=== PATIENT | male | born 1940 | race Caucasian/White ===

== ENCOUNTER 2020-05-24 11:56 | Inpatient (IN) ==
[2020-05-24] MEDS ORDERED: IOPAMIDOL 100 ML BOTTLE IV ONE (11:57)
[2020-05-24] MEDS ORDERED: 0.9 % SODIUM CHLORIDE 2,000 ML IV ONE (12:06)
[2020-05-24] MEDS ORDERED: cefTRIAXone 1 GM VIAL IV ONE (12:09)
--- NOTE | 2020-05-24 12:12 | Emergency Department Note ---
Altered Mental Status HPI General Chief Complaint: Altered Mental Status Stated Complaint: Altered LOC Time Seen by Provider: 05/24/20 12:06 Source: EMS Mode of arrival: ambulatory Limitations: no limitations History of Present Illness HPI Narrative: 80-year-old patient presenting to the emergency department chief complaint of altered mentation. Historical clues assessed for include recent febrile illness, history of organ failure, medication list evaluation, alcohol drug abuse, recent depression. Patient was in usual state of health went out to do some weed whacking this morning returned and was sleeping in his chair when noted that he was having acute altered mentation. Patient attempted to take his pants down and was headed towards the front door to urinate. Patient is confused at time of evaluation and history is limited. There are no exacerbating or ameliorating factors identified at this time. Time course is sudden acute over just a couple of hours patient became unresponsive to question ing. Related Data Home Medications Medication Instructions Recorded Confirmed aspirin 81 mg tablet,delayed 81 mg PO QDAY 03/15/16 05/24/20 release Adult Multi Gummies 1 tab PO DAILY 03/06/17 05/24/20 Previous Rx's Medication Instructions Recorded atorvastatin 10 mg tablet 10 mg PO QDAY #90 tab 10/20/19 tamsulosin 0.4 mg capsule 0.4 mg PO QDAY #90 cap 02/17/20 Allergies Allergy/AdvReac Type Severity Reaction Status Date / Time No Known Drug Allergies Allergy Verified 05/24/20 17:29 Review of Systems All systems ED: reviewed and negative except as stated. 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 Cryotherapy. Ataxia (Chronic) resolved Closed rib fracture (Resolved) Colon adenoma (Inactive) 2011 Costochondritis (Resolved 02/25/14) Right Costal Margin Cough due to bronchospasm (Resolved) Diverticulosis (Inactive 02/25/14) Dyspnea (Resolved) Fall (Resolved) Hearing loss (Chronic) Long-term. Hearing aid left ear. Right ear deaf. Hernia, inguinal (Chronic) Asymptomatic RIH Hydronephrosis (Chronic 02/19/14) Hyperlipidemia (Chronic) Hypertension, essential, benign (Chronic) Not on antihypertensive medications. Moderately well controlled. Patient at high risk for falls, so I hesitate to add blood pressure medications. His blood pressure is acceptable today. Lumbar back pain (Chronic 08/04/13) Recent lumbar decompression Malignant neoplasm of prostate (Chronic) 2000 Minor head injury (Resolved) Myofascial pain (Resolved) Left trapezius and posterior paraspinal muscles Night sweats (Chronic) Mild, afebrile. Possibly secondary to hormone imbalance such as testosterone deficiency. 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 Repeat steroid injection today. Tolerated well. Tendinopathy of right rotator cuff (Chronic) Steroid injection January 2019. Repeat today. 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 2014. History of colonoscopy (Resolved 01/03/12) Tubular adenoma - due 01/03/2017 03/10/17-diverticuli. No more screening colonoscopies. History of lumbosacral spine surgery (Inactive) 07/2013 Lumbar decompression L3-L4 History of mastoidectomy (Inactive) Remote - right History of radical prostatectomy (Inactive) 2000 and radiation Family History Father Malignant neoplasm of colon Malignant neoplasm of prostate Mother , at 86y Cardiac disease Social History Smoking Status: Never smoker Alcohol Intake Frequency: former alcohol drinker Substance Use: does not use Exam Narrative Narrative: General: Confused, restless, disoriented Orientation: Completely disoriented HENCA Head: normal to inspection and normocephalic Ears: Not assessable Nose: external nose normal, nares normal and no nasal discharge Face : normal facial exam, and face symmetric Mouth: oral mucosae dry, lip normal, tongue normal, oropharynx normal and dry mucous membranes Eyes Eyelids: eyelids normal Conjunctivae: conjunctivae normal Sclera: sclerae normal Pupils: PERRL EOM: EOM intact bilaterally Neck Neck: full ROM, supple, trachea midline and no lymphadenopathy Thyroid: thyroid normal Resp Effort & Inspection: Patient is tachypneic with some increased respiratory effort auscultation: Diffuse coarse breath sounds bilaterally; no rales, rhonchi or wheezes Cardio Jugular venous pressure: no JVD Rate: Tachycardia Rhythm: regular rhythm Heart Sounds: S1 normal and S2 normal Pulses: brachial pulses present, dorsalis pedis present, femoral pulses present, popliteal pulses present, posterior tibial pulses present and radial pulses present GI Palpation: soft and no hepatosplenomegaly; no tender Auscultation: normal bowel sounds Skin General: no rashes or lesions noted, elasticity normal and turgor normal Neuro General: gait untestable, moves all extremities Cognition: Altered mental status Speech: Nonverbal Gait: Untestable Motor: muscle tone normal throughout and strength 5/5 throughout; not capable of coordinated testing however patient moves all extremities well and is able to thrash about to an extent Extrem General: normal to inspection, full ROM, capillary refill normal, no joint enlargement and no clubbing, cyanosis nor edema Psych altered mentation General Limitations: no limitations Course Course Course Narrative: Patient with complete alteration in mental status at time of presentation, unresponsive to questioning, initial laboratory results included CT head as well as chest x-ray demonstrating no significant findings. Patient with rapid rise in his temperature to a T-max of 105.3. Patient is tachycardic. Patient i was not tachypneic, he was hypoxic on initial presentation. Aggressive fluid resuscitation was initiated as well as aggressive cooling including use of ice packs, patient was given IV Tylenol as well. Patient had defervesced with these interventions. Approximate 1 hour into his emergency department stay patient was interactive and able to answer questions. 1421 patient was noted to be hypotensive started on levophed Vital Signs Vital signs: Vital Signs Temperature 103.5 F H 05/24/20 11:57 Pulse Rate 22 L 05/24/20 11:57 Respiratory Rate 30 H 05/24/20 11:57 Blood Pressure 150/70 05/24/20 11:57 Pulse Oximetry (%) 96 05/24/20 11:57 Temperature 99.3 F H 05/25/20 07:01 Pulse Rate 62 05/25/20 07:01 Respiratory Rate 23 H 05/25/20 07:01 Blood Pressure 105/56 05/25/20 07:01 Pulse Oximetry (%) 95 05/25/20 07:01 [facility] MDM Narrative Medical decision making narrative: 80-year-old patient presenting to the emergency department chief complaint of altered mental status. Patient's recent medical history is evaluated for infectious illnesses, history of organ failure, medication list, drug/alcohol history, and depression patient's mental status made them unable to provide significant clues to current symptoms differential diagnosis included but not limited to stroke, intracranial hemorrhage, electrolyte derangement, DKA/HHS, sepsis, toxicology including alcohol and overdose, status epilepticus. Likely with sepsis as the leading differential cause for her altered mental status. Patient did receive Rocephin in the emergency department. Lab Data Result diagrams: 05/25/20 05:00 05/24/20 12:19 Labs: Lab Results 05/24/20 05/24/20 05/24/20 Range/Units 12:19 12:19 12:19 WBC 6.6 (4.50-11.00) K/mcL RBC 4.47 L (4.63-6.08) M/mcL Hgb 13.7 (13.7-17.5) g/dL Hct 41.0 (40.1-51.0) % MCV 91.7 (80.0-100.0) fL MCH 30.6 (26.0-34.0) pg MCHC 33.4 (31.0-36.0) g/dL RDW 14.5 (11.5-14.5) % Plt Count 331 (140-440) K/mcL MPV 9.6 (7.4-10.4) fL Gran % 90.4 H (38.0-78.0) % Lymph % (Auto) 8.2 L (15.5-49.0) % Martin % (Auto) 0.8 L (1.0-12.0) % Eos % (Auto) 0.3 (0.0-7.0) % Baso % (Auto) 0.3 (0.0-2.0) % Gran # 5.99 (1.80-8.00) K/mcL Lymph # (Auto) 0.54 L (1.50-4.80) K/mcL Martin # (Auto) 0.05 L (0.10-0.90) K/mcL Eos # (Auto) 0.02 (0.00-0.70) K/mcL Baso # (Auto) 0.02 (0.00-0.30) K/mcL Total Counted Seg Neutrophils % (38-78) % Band Neutrophils % (0-10) % Lymphocytes % (15-49) % Monocytes % (Manual) (1-12) % Platelet Estimate (NORMAL) RBC Morphology (NORMAL) Anisocytosis (NONE SEEN) POC PT (11.9-14.5) sec POC INR (0.9-1.2) VBG Lactic Acid 2.7 H (0.5-2.0) mmol/L Sodium 137 (133-145) mmol/L Potassium 3.5 (3.3-5.1) mmol/L Chloride 98 (96-108) mmol/L Carbon Dioxide 22 (22-30) mmol/L Anion Gap 17.0 H (8-16) BUN 16 (8-23) mg/dl Creatinine 1.2 (0.7-1.2) mg/dl GFR Calculation 56 Glucose 113 H (70-105) mg/dL Calcium 9.0 (8.6-10.4) mg/dl Total Bilirubin 0.9 (0.0-1.0) mg/dL AST 23 (0-37) U/l ALT 31 (0-40) U/l Alkaline Phosphatase 78 (39-117) U/L Total Creatine Kinase (24-195) IU/L Total Protein 6.9 (5.9-8.4) gm/dL Albumin 3.3 (3.2-5.2) gm/dL Globulin 3.6 (2.2-3.7) gm/dL Albumin/Globulin Ratio 0.9 L (1.0-2.3) Procalcitonin (<0.10) ng/mL Urine Color Urine Appearance Urine pH (5.0-9.0) Ur Specific Te[place]y (1.000-1.035) Urine Protein (NEG) mg/dL Urine Glucose (UA) (NEG) mg/dL Urine Ketones (NEG) mg/dL Urine Occult Blood (<0.03) mg/dL Urine Nitrate (NEG) Urine Bilirubin (NEG) mg/dL Urine Urobilinogen (NEG) mg/dL Ur Leukocyte Esterase (NEG) /uL Urine RBC (0-1) /hpf Urine WBC (0-4) /hpf Ur Squamous Epith Cells (0-4) /hpf Ur Transition Epith Cell (0-2) /hpf Urine Bacteria (0) /hpf Urine Mucus (0) /hpf Ur Culture Indicated? COVID-19 PCR 05/24/20 05/24/20 05/24/20 Range/Units 12:19 12:19 12:19 WBC (4.50-11.00) K/mcL RBC (4.63-6.08) M/mcL Hgb (13.7-17.5) g/dL Hct (40.1-51.0) % MCV (80.0-100.0) fL MCH (26.0-34.0) pg MCHC (31.0-36.0) g/dL RDW (11.5-14.5) % Plt Count (140-440) K/mcL MPV (7.4-10.4) fL Gran % (38.0-78.0) % Lymph % (Auto) (15.5-49.0) % Martin % (Auto) (1.0-12.0) % Eos % (Auto) (0.0-7.0) % Baso % (Auto) (0.0-2.0) % Gran # (1.80-8.00) K/mcL Lymph # (Auto) (1.50-4.80) K/mcL Martin # (Auto) (0.10-0.90) K/mcL Eos # (Auto) (0.00-0.70) K/mcL Baso # (Auto) (0.00-0.30) K/mcL Total Counted 100 Seg Neutrophils % 57 (38-78) % Band Neutrophils % 34 H (0-10) % Lymphocytes % 8 L (15-49) % Monocytes % (Manual) 1 (1-12) % Platelet Estimate Normal (NORMAL) RBC Morphology Abnorm A (NORMAL) Anisocytosis 1+ A (NONE SEEN) POC PT (11.9-14.5) sec POC INR (0.9-1.2) VBG Lactic Acid (0.5-2.0) mmol/L Sodium (133-145) mmol/L Potassium (3.3-5.1) mmol/L Chloride (96-108) mmol/L Carbon Dioxide (22-30) mmol/L Anion Gap (8-16) BUN (8-23) mg/dl Creatinine (0.7-1.2) mg/dl GFR Calculation Glucose (70-105) mg/dL Calcium (8.6-10.4) mg/dl Total Bilirubin (0.0-1.0) mg/dL AST (0-37) U/l ALT (0-40) U/l Alkaline Phosphatase (39-117) U/L Total Creatine Kinase 36 (24-195) IU/L Total Protein (5.9-8.4) gm/dL Albumin (3.2-5.2) gm/dL Globulin (2.2-3.7) gm/dL Albumin/Globulin Ratio (1.0-2.3) Procalcitonin 0.36 (<0.10) ng/mL Urine Color Urine Appearance Urine pH (5.0-9.0) Ur Specific [place]y (1.000-1.035) Urine Protein (NEG) mg/dL Urine Glucose (UA) (NEG) mg/dL Urine Ketones (NEG) mg/dL Urine Occult Blood (<0.03) mg/dL Urine Nitrate (NEG) Urine Bilirubin (NEG) mg/dL Urine Urobilinogen (NEG) mg/dL Ur Leukocyte Esterase (NEG) /uL Urine RBC (0-1) /hpf Urine WBC (0-4) /hpf Ur Squamous Epith Cells (0-4) /hpf Ur Transition Epith Cell (0-2) /hpf Urine Bacteria (0) /hpf Urine Mucus (0) /hpf Ur Culture Indicated? COVID-19 PCR 05/24/20 05/24/20 05/24/20 Range/Units 12:23 12:24 14:14 WBC (4.50-11.00) K/mcL RBC (4.63-6.08) M/mcL Hgb (13.7-17.5) g/dL Hct (40.1-51.0) % MCV (80.0-100.0) fL MCH (26.0-34.0) pg MCHC (31.0-36.0) g/dL RDW (11.5-14.5) % Plt Count (140-440) K/mcL MPV (7.4-10.4) fL Gran % (38.0-78.0) % Lymph % (Auto) (15.5-49.0) % Martin % (Auto) (1.0-12.0) % Eos % (Auto) (0.0-7.0) % Baso % (Auto) (0.0-2.0) % Gran # (1.80-8.00) K/mcL Lymph # (Auto) (1.50-4.80) K/mcL Martin # (Auto) (0.10-0.90) K/mcL Eos # (Auto) (0.00-0.70) K/mcL Baso # (Auto) (0.00-0.30) K/mcL Total Counted Seg Neutrophils % (38-78) % Band Neutrophils % (0-10) % Lymphocytes % (15-49) % Monocytes % (Manual) (1-12) % Platelet Estimate (NORMAL) RBC Morphology (NORMAL) Anisocytosis (NONE SEEN) POC PT 15.6 H (11.9-14.5) sec POC INR 1.3 H (0.9-1.2) VBG Lactic Acid 1.1 (0.5-2.0) mmol/L Sodium (133-145) mmol/L Potassium (3.3-5.1) mmol/L Chloride (96-108) mmol/L Carbon Dioxide (22-30) mmol/L Anion Gap (8-16) BUN (8-23) mg/dl Creatinine (0.7-1.2) mg/dl GFR Calculation Glucose (70-105) mg/dL Calcium (8.6-10.4) mg/dl Total Bilirubin (0.0-1.0) mg/dL AST (0-37) U/l ALT (0-40) U/l Alkaline Phosphatase (39-117) U/L Total Creatine Kinase (24-195) IU/L Total Protein (5.9-8.4) gm/dL Albumin (3.2-5.2) gm/dL Globulin (2.2-3.7) gm/dL Albumin/Globulin Ratio (1.0-2.3) Procalcitonin (<0.10) ng/mL Urine Color Yellow Urine Appearance Clear Urine pH 7.0 (5.0-9.0) Ur Specific [place] 1.008 (1.000-1.035) Urine Protein 30 A (NEG) mg/dL Urine Glucose (UA) Negative (NEG) mg/dL Urine Ketones Neg (NEG) mg/dL Urine Occult Blood 0.2 A (<0.03) mg/dL Urine Nitrate Neg (NEG) Urine Bilirubin Neg (NEG) mg/dL Urine Urobilinogen Neg (NEG) mg/dL Ur Leukocyte Esterase 250 A (NEG) /uL Urine RBC 4 H (0-1) /hpf Urine WBC 30 H (0-4) /hpf Ur Squamous Epith Cells 0 (0-4) /hpf Ur Transition Epith Cell < 1 (0-2) /hpf Urine Bacteria Mod A (0) /hpf Urine Mucus Few (0) /hpf Ur Culture Indicated? Yes COVID-19 PCR 05/24/20 Range/Units 15:03 WBC (4.50-11.00) K/mcL RBC (4.63-6.08) M/mcL Hgb (13.7-17.5) g/dL Hct (40.1-51.0) % MCV (80.0-100.0) fL MCH (26.0-34.0) pg MCHC (31.0-36.0) g/dL RDW (11.5-14.5) % Plt Count (140-440) K/mcL MPV (7.4-10.4) fL Gran % (38.0-78.0) % Lymph % (Auto) (15.5-49.0) % Martin % (Auto) (1.0-12.0) % Eos % (Auto) (0.0-7.0) % Baso % (Auto) (0.0-2.0) % Gran # (1.80-8.00) K/mcL Lymph # (Auto) (1.50-4.80) K/mcL Martin # (Auto) (0.10-0.90) K/mcL Eos # (Auto) (0.00-0.70) K/mcL Baso # (Auto) (0.00-0.30) K/mcL Total Counted Seg Neutrophils % (38-78) % Band Neutrophils % (0-10) % Lymphocytes % (15-49) % Monocytes % (Manual) (1-12) % Platelet Estimate (NORMAL) RBC Morphology (NORMAL) Anisocytosis (NONE SEEN) POC PT (11.9-14.5) sec POC INR (0.9-1.2) VBG Lactic Acid (0.5-2.0) mmol/L Sodium (133-145) mmol/L Potassium (3.3-5.1) mmol/L Chloride (96-108) mmol/L Carbon Dioxide (22-30) mmol/L Anion Gap (8-16) BUN (8-23) mg/dl Creatinine (0.7-1.2) mg/dl GFR Calculation Glucose (70-105) mg/dL Calcium (8.6-10.4) mg/dl Total Bilirubin (0.0-1.0) mg/dL AST (0-37) U/l ALT (0-40) U/l Alkaline Phosphatase (39-117) U/L Total Creatine Kinase (24-195) IU/L Total Protein (5.9-8.4) gm/dL Albumin (3.2-5.2) gm/dL Globulin (2.2-3.7) gm/dL Albumin/Globulin Ratio (1.0-2.3) Procalcitonin (<0.10) ng/mL Urine Color Urine Appearance Urine pH (5.0-9.0) Ur Specific [place] (1.000-1.035) Urine Protein (NEG) mg/dL Urine Glucose (UA) (NEG) mg/dL Urine Ketones (NEG) mg/dL Urine Occult Blood (<0.03) mg/dL Urine Nitrate (NEG) Urine Bilirubin (NEG) mg/dL Urine Urobilinogen (NEG) mg/dL Ur Leukocyte Esterase (NEG) /uL Urine RBC (0-1) /hpf Urine WBC (0-4) /hpf Ur Squamous Epith Cells (0-4) /hpf Ur Transition Epith Cell (0-2) /hpf Urine Bacteria (0) /hpf Urine Mucus (0) /hpf Ur Culture Indicated? COVID-19 PCR TNP EKG Data EKG #1: EKG attestation: Yes I reviewed and interpreted this EKG. EKG results narrative: EKG: Rate: 115, VT: 118 , rhythm: Sinus tachycardia, patient without ST elevations to suggest STEMI, patient without concerning T wave inversions or other findings to suggest NSTEMI CC TIME Critical Care Time Critical Care Time: Yes Total Critical Care Time: 120 Attestation: This critical care time was direct patient care exclusive of other procedures. Discharge Plan Patient/Caregiver Discharge Instructions Pt seen by [facility]IST/PA only: No Clinical Impression: Sepsis associated hypotension, Septic shock, Acute alteration in mental status Patient Disposition: Xfer As Inpt ([facility]) Condition: Fair Discharge Date/Time: 05/24/20 16:35
[2020-05-24] MEDS ORDERED: ACETAMINOPHEN 1,000 MG/100 ML BOTTLE IV ONE (12:19)
[2020-05-24 12:28] LABS: POC INR 1.3 (0.9-1.2); POC Pro Time 15.6 sec (11.9-14.5)
--- NOTE | 2020-05-24 12:44 | Cat Scan Report ---
CLINICAL INFORMATION: Altered level consciousness COMPARISON: 05/17/2020 TECHNIQUE: 2.5 mm helical slices were obtained in the skull base to vertex. Following reconstruction, axial reformatted images were reviewed at bone and parenchymal windows. The exam was performed using radiation dose optimization techniques including, but not limited to, automated exposure control, adjustment of the mA and/or kV according to patient size and use of iterative reconstruction technique. FINDINGS: The ventricles, sulci, fissures, and cisterns are symmetrically enlarged bowel mild age-related atrophy.. No extra-axial fluid collections are identified. Moderate patchy chronic ischemic changes in the cerebral white matter are stable and expected for age. The cerebrum, brainstem and cerebellum are otherwise, unremarkable. There is no evidence of hemorrhage, mass effect, or edema. Bone windows show partial right mastoidectomy. IMPRESSION: Mild atrophy and chronic ischemic changes in the deep cerebral white matter expected for age and stable. No acute disease.. Interpreted and Authenticated by: Se Mccallum 05/24/20
--- NOTE | 2020-05-24 12:46 | XRay Report ---
CLINICAL INFORMATION: hypoxia COMPARISON: 06/05/2017 FINDINGS: The cardiomediastinal silhouette and pulmonary vasculature are accentuated by lordotic position, right rotation portable technique and suboptimal inspiratory result. They are within normal limits. There is minor bibasilar atelectasis. No effusion. Moderate subluxation right humeral head compatible chronic rotator cuff tear. IMPRESSION: No acute disease Interpreted and Authenticated by: Se Mccallum 05/24/20
[2020-05-24] MEDS ORDERED: 0.9 % SODIUM CHLORIDE 1,000 ML IV ONE ×2 (13:05→14:21)
[2020-05-24 13:25] LABS: Basophils # (Auto) 0.02 K/mcL (0.00-0.30); Basophils % (Auto) 0.3 % (0.0-2.0); Eosinophils # (Auto) 0.02 K/mcL (0.00-0.70); Eosinophils % (Auto) 0.3 % (0.0-7.0); Granulocytes % (Auto) 90.4 % (38.0-78.0); Hemoglobin 13.7 g/dL (13.7-17.5); Lymphocytes # (Auto) 0.54 K/mcL (1.50-4.80); Lymphocytes % (Auto) 8.2 % (15.5-49.0); Mean Cell Volume 91.7 fL (80.0-100.0); Mean Corpuscular HGB Conc 33.4 g/dL (31.0-36.0); Mean Platelet Volume 9.6 fL (7.4-10.4); Monocytes # (Auto) 0.05 K/mcL (0.10-0.90); Monocytes % (Auto) 0.8 % (1.0-12.0); Platelet Count 331 K/mcL (140-440); RBC 4.47 M/mcL (4.63-6.08); Red Cell Distribution Width 14.5 % (11.5-14.5); WBC 6.6 K/mcL (4.50-11.00)
[2020-05-24 13:50] LABS: ALT/SGPT 31 U/l (0-40); AST/SGOT 23 U/l (0-37); Albumin 3.3 gm/dL (3.2-5.2); Albumin/Globulin Ratio 0.9 (1.0-2.3); Alkaline Phosphatase 78 U/L (39-117); Bilirubin,Total 0.9 mg/dL (0.0-1.0); Blood Urea Nitrogen 16 mg/dl (8-23); Carbon Dioxide 22 mmol/L (22-30); Chloride 98 mmol/L (96-108); Globulin 3.6 gm/dL (2.2-3.7); Glomerular Filtration Rate 56; Glucose 113 mg/dL (70-105)
[2020-05-24 14:35] LABS: Appearance,Urine CLEAR; Bacteria,Urine MOD /hpf (0); Bilirubin,Urine NEG (NEG); Color,Urine YELLOW; Culture Indicated,Urine YES; Glucose,Urine (UA) NEGATIVE (NEG); Ketones,Urine NEG (NEG); Leukocyte Esterase,Urine 250 /uL (NEG); Mucus,Urine FEW /hpf (0); Nitrate,Urine NEG (NEG); Protein,Urine 30 mg/dL (NEG); Specific Gravity,Urine 1.008 (1.000-1.035); Urine Blood 0.2 mg/dL (<0.03); Urine RBC 4 /hpf (0-1); Urine Squamous Epithelial Cell 0 /hpf (0-4); Urine Transitional Epi Cells < 1 /hpf (0-2); Urine WBC 30 /hpf (0-4); Urobilinogen,Urine NEG (NEG)
[2020-05-24] MEDS: NOREPINEPHRINE BITARTRATE 8 MG in 0.9 % SODIUM CHLORIDE 242 ML IV SCH ×2 (14:38→17:31)
--- NOTE | 2020-05-24 14:57 | Cat Scan Report ---
CLINICAL INFORMATION: Altered mental status. Chest and abdominal pain COMPARISON: CT 03/03/[address] 02/17/2014. TECHNIQUE: Enteric contrast was utilized. 80 cc of Isovue-370 were injected intravenously, and 50 seconds later 2.5 mm helical slices were obtained from the lung apices through the subtrochanteric regions of the femurs. Following reconstruction, 2.5 mm sagittal, coronal and axial reformatted images were processed and reviewed at multiple windows and levels. 7 mm MIP reconstructions were obtained through the lungs to optimize nodule detection.The exam was performed using radiation dose optimization techniques including, but not limited to, automated exposure control, adjustment of the mA and/or kV according to patient size and use of iterative reconstruction technique. FINDINGS: Pulmonary parenchymal windows show mild elevation in lung volumes and wall thickening/dilatation of bronchi compatible with chronic bronchitis. There are scattered peripheral scarring. No infiltrates. Pleural spaces are normal. The mediastinal windows show the heart is mildly enlarged. Scattered calcific seen in the coronary arteries. The pulmonary arteries are relatively well opacified - no evidence of emboli. Thoracic aorta is normal diameter. There is no adenopathy in the mediastinal hilar or axillary regions. The esophagus is grossly normal. Thyroid is unremarkable. Abdominal images the liver is mildly inhomogeneous. A 14 mm simple cyst in the inferior right hepatic lobe demonstrates long-term stability. The gallbladder and bile ducts are normal CBD is 5 mm. A 6.4 cm parapelvic cyst in the inferior right kidney and a 3 cm simple cyst superior pole right kidney are both stable. The left kidney, both adrenal glands spleen and pancreas are normal. The aorta contains scattered atherosclerotic plaque but is normal diameter. There is no free air or adenopathy. Pelvic images show a Ingram catheter properly positioned within the urinary bladder. Bladder is partially collapsed. Prostatectomy changes noted. Few sigmoid diverticuli appreciated. In the ascending colon, there is equivocal wall thickening with tiny amount of extracolonic gas and fluid in the right paracolic gutter. There is also slight thickening of adjacent Gerotas' fascia. There is a new finding. The small bowel appendix and stomach are grossly normal. A 6 cm right inguinal hernia containing only mesenteric fat is appreciated. Bone windows show moderate degenerative change throughout the lumbar spine. No focal osseous lesion. IMPRESSION: 1. Mild wall thickening of the descending colon with tiny amount of extracolonic gas and fluid in the right paracolic gutter. This is a new finding from abdomen CT 2013. The possibility of inflammatory, infectious or ischemic colitis should be entertained. Suggest: colonoscopy. 2. Chronic bronchitis - stable. No acute cardiopulmonary disease. 3. Right renal cysts and a solitary cyst in the right hepatic lobe stable since 2013 4. Sigmoid diverticulosis, but no evidence of diverticulitis 5. 3.6 x 2.3 cm low-attenuation region in the periacetabular soft tissues of the right hip is likely a cyst. This was not seen on prior study 6. Small right inguinal hernia containing only mesenteric fat Interpreted and Authenticated by: Se Mccallum 05/24/20
--- NOTE | 2020-05-24 16:10 | Internal Med History&Physical ---
HPI History of Present Illness Patient information: Note initiated : 05/24/20 at 4:00 pm Service Date, if different from initiated Date: [] Patient: Christian Cruz a 80 y/o M admitted on for Altered LOC. Chief Complaint: [] History of present illness: Mr. Cruz is a 80 year old M Presents to the ED with weakness altered mental status. History obtained from patient and . Sounds like other than being a little bit weak he was in his normal state of health this morning. When out did some weed whacking and came in a sat in his chair and fell asleep. When his came in and woke him up he seemed confused. He got up to go the bathroom and walked to the front door instead. said he he has been a little bit weak past few days. He fell a week ago while in the yard picking up dog feces. When asking him about abdominal pain or diarrhea says did have a little bit of achiness in his stomach this morning but none now. He states that constipation. Denies any abnormalities in his urine. Work-up in the ED was significant for fever and he had a lactate of 2.7. He was initially hypoxic but that has seemed to resolved in the ED likely related to his obtundation. He was difficult to arouse when he first arrived but after IV fluids and antibiotics patient is much more coherent. CT head chest abdomen pelvis were done which were unremarkable except for some mild colitis of the descending colon. CT chest was done with contrast did not show any pulmonary emboli. CT brain showed mild atrophy and chronic ischemic changes. Analysis with leukocyte esterase WBCs, moderate bacteria. Patient feels like he is clear minded now. He has occasional cough which is relatively normal for him given he has sinus drainage. Dates he had a little shortness of breath this morning but denies currently. In the ED is blood pressure dropped and after several liters of fluids he was started on Levophed low-dose. Review of Systems: Pertinent positives as above., Occasional headaches. Denies fever/chills/nausea/vomiting/chest pain/diarrhea. Pertinent positives as above. [facility] Medical History (Updated 05/17/20 @ 21:53 by Alvarado Morales DO) Actinic keratosis (Inactive) 1 lesion occipital vertex region. Cryotherapy. Ataxia (Chronic) resolved Closed rib fracture (Resolved) Colon adenoma (Inactive) 2011 Costochondritis (Resolved 02/25/14) Right Costal Margin Cough due to bronchospasm (Resolved) Diverticulosis (Inactive 02/25/14) Dyspnea (Resolved) Fall (Resolved) Hearing loss (Chronic) Long-term. Hearing aid left ear. Right ear deaf. Hernia, inguinal (Chronic) Asymptomatic RIH Hydronephrosis (Chronic 02/19/14) Hyperlipidemia (Chronic) Hypertension, essential, benign (Chronic) Not on antihypertensive medications. Moderately well controlled. Patient at high risk for falls, so I hesitate to add blood pressure medications. His blood pressure is acceptable today. Lumbar back pain (Chronic 08/04/13) Recent lumbar decompression Malignant neoplasm of prostate (Chronic) 2000 Minor head injury (Resolved) Myofascial pain (Resolved) Left trapezius and posterior paraspinal muscles Night sweats (Chronic) Mild, afebrile. Possibly secondary to hormone imbalance such as testosterone deficiency. 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 Repeat steroid injection today. Tolerated well. Tendinopathy of right rotator cuff (Chronic) Steroid injection January 2019. Repeat today. 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 2014. History of colonoscopy (Resolved 01/03/12) Tubular adenoma - due 01/03/2017 03/10/17-diverticuli. No more screening colonoscopies. 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 smoking status: Never smoker alcohol intake frequency: former alcohol drinker substance use type: does not use additional history: Formerly used chewing tobacco Denies alcohol use Does not use a cane or walker Lives at home with his MEDS/ALLERGIES Home Medications and Allergies Home Medications Medication Instructions Recorded Confirmed Type aspirin 81 mg tablet,delayed 81 mg PO QDAY 03/15/16 05/24/20 History release Adult Multi Gummies 1 tab PO DAILY 03/06/17 05/24/20 History atorvastatin 10 mg tablet 10 mg PO QDAY #90 tab 10/20/19 05/24/20 Rx tamsulosin 0.4 mg capsule 0.4 mg PO QDAY #90 cap 02/17/20 05/24/20 Rx Allergies Allergy/AdvReac Type Severity Reaction Status Date / Time No Known Drug Allergies Allergy Verified 04/21/20 13:07 EXAM Constitutional Vitals: Temp Pulse Resp BP Pulse Ox 99.5 F H 85 19 99/55 92 05/24/20 15:58 05/24/20 15:58 05/24/20 15:58 05/24/20 15:46 05/24/20 15:58 Exam: General: Alert, Awake, No acute Distress Eyes/N/T: EOMI, PERRL, dry MM Head/Neck: neck supple, normocephalic atraumatic CV: Tachycardic but regular, No murmurs, normal s1/s2 Pulm: Clear b/l, no wheezing/rhonchi/rales Abd: soft, nontender, +BS x4 Ext: no clubbing/cyanosis/edema Neuro: Alert, no focal deficits, moves all extremities, CN 2-12 grossly intact, symmetrical strength b/l upper/lower, sensations intact b/l upper/lower Skin: warm/dry DATA Data Completed and Pending Labs on day of discharge: Labs from last 24 hours 05/24/20 05/24/20 05/24/20 15:03 15:03 14:14 WBC RBC Hgb Hct MCV MCH MCHC RDW Plt Count MPV Gran % Lymph % (Auto) [place] % (Auto) Eos % (Auto) Baso % (Auto) Gran # Lymph # (Auto) [place] # (Auto) Eos # (Auto) Baso # (Auto) POC PT POC INR VBG Lactic Acid Pending Sodium Potassium Chloride Carbon Dioxide Anion Gap BUN Creatinine GFR Calculation Glucose Calcium Total Bilirubin AST ALT Alkaline Phosphatase Total Creatine Kinase Total Protein Albumin Globulin Albumin/Globulin Ratio Urine Color Urine Appearance Urine pH Ur Specific [place] Urine Protein Urine Glucose (UA) Urine Ketones Urine Occult Blood Urine Nitrate Urine Bilirubin Urine Urobilinogen Ur Leukocyte Esterase Urine RBC Urine WBC Ur Squamous Epith Cells Ur Transition Epith Cell Urine Bacteria Urine Mucus Ur Culture Indicated? COVID-19 PCR Pending Nasal/Oral COVID-19 PCR Pending COVID-19 PCR Interp Pending 05/24/20 05/24/20 05/24/20 12:24 12:23 12:19 WBC RBC Hgb Hct MCV MCH MCHC RDW Plt Count MPV Gran % Lymph % (Auto) [place] % (Auto) Eos % (Auto) Baso % (Auto) Gran # Lymph # (Auto) [place] # (Auto) Eos # (Auto) Baso # (Auto) POC PT 15.6 H POC INR 1.3 H VBG Lactic Acid Sodium Potassium Chloride Carbon Dioxide Anion Gap BUN Creatinine GFR Calculation Glucose Calcium Total Bilirubin AST ALT Alkaline Phosphatase Total Creatine Kinase 36 Total Protein Albumin Globulin Albumin/Globulin Ratio Urine Color Yellow Urine Appearance Clear Urine pH 7.0 Ur Specific [place] 1.008 Urine Protein 30 A Urine Glucose (UA) Negative Urine Ketones Neg Urine Occult Blood 0.2 A Urine Nitrate Neg Urine Bilirubin Neg Urine Urobilinogen Neg Ur Leukocyte Esterase 250 A Urine RBC 4 H Urine WBC 30 H Ur Squamous Epith Cells 0 Ur Transition Epith Cell < 1 Urine Bacteria Mod A Urine Mucus Few Ur Culture Indicated? Yes COVID-19 PCR Nasal/Oral COVID-19 PCR COVID-19 PCR Interp 05/24/20 05/24/20 05/24/20 12:19 12:19 12:19 WBC 6.6 RBC 4.47 L Hgb 13.7 Hct 41.0 MCV 91.7 MCH 30.6 MCHC 33.4 RDW 14.5 Plt Count 331 MPV 9.6 Gran % 90.4 H Lymph % (Auto) 8.2 L [place] % (Auto) 0.8 L Eos % (Auto) 0.3 Baso % (Auto) 0.3 Gran # 5.99 Lymph # (Auto) 0.54 L [place] # (Auto) 0.05 L Eos # (Auto) 0.02 Baso # (Auto) 0.02 POC PT POC INR VBG Lactic Acid 2.7 H Sodium 137 Potassium 3.5 Chloride 98 Carbon Dioxide 22 Anion Gap 17.0 H BUN 16 Creatinine 1.2 GFR Calculation 56 Glucose 113 H Calcium 9.0 Total Bilirubin 0.9 AST 23 ALT 31 Alkaline Phosphatase 78 Total Creatine Kinase Total Protein 6.9 Albumin 3.3 Globulin 3.6 Albumin/Globulin Ratio 0.9 L Urine Color Urine Appearance Urine pH Ur Specific [place] Urine Protein Urine Glucose (UA) Urine Ketones Urine Occult Blood Urine Nitrate Urine Bilirubin Urine Urobilinogen Ur Leukocyte Esterase Urine RBC Urine WBC Ur Squamous Epith Cells Ur Transition Epith Cell Urine Bacteria Urine Mucus Ur Culture Indicated? COVID-19 PCR Nasal/Oral COVID-19 PCR COVID-19 PCR Interp A/P Narrative A/P Narrative: A: *Septic shock: source vs GI source /colitis: *AMS (confusion/obtundation): clearing in ED *UTI: *colitis, mild: *TRA, mild: *HLD: * P: -Wean off vasopressors -IVF, follow-up lactate -check PCT, man diff -Cefepime, pending BC/UC -monitor UOP - -PT/OT -ppx: Lovenox DNR Time Spent With Patient Time: Total time spent is greater than 50% in coordination of care (as documented) at patient's floor/unit and/or counseling patient:
[2020-05-24] MEDS ORDERED: ONDANSETRON 4 MG/2 ML VIAL IV PRN (16:42)
[2020-05-24] MEDS ORDERED: SENNOSIDES 1 TABLET PO PRN (16:42)
[2020-05-24] MEDS ORDERED: IPRATROPIUM/ALBUTEROL 3 ML AMPUL.NEB NEB PRN (16:42)
[2020-05-24] MEDS ORDERED: CEFEPIME 2 GM VIAL IV SCH ×2 (16:42→17:00)
[2020-05-24] MEDS ORDERED: BISACODYL 10 MG SUPP.RECT PR PRN (16:42)
--- NOTE | 2020-05-24 16:45 | General Surgery Consult Note ---
HPI Data of Consult Primary Care Provider: Se Maldonado DO Consult Narrative Patient Information: Note initiated : 05/24/20 at 4:45 pm Service Date, if different from initiated Date: [] Patient: Christian Cruz 80 y/o M admitted on 05/24/20 for Altered LOC. Chief Complaint: [] cc:: CC: [facility] Medical History (Updated 05/17/20 @ 21:53 by Alvarado Morales DO) Actinic keratosis (Inactive) 1 lesion occipital vertex region. Cryotherapy. Ataxia (Chronic) resolved Closed rib fracture (Resolved) Colon adenoma (Inactive) 2011 Costochondritis (Resolved 02/25/14) Right Costal Margin Cough due to bronchospasm (Resolved) Diverticulosis (Inactive 02/25/14) Dyspnea (Resolved) Fall (Resolved) Hearing loss (Chronic) Long-term. Hearing aid left ear. Right ear deaf. Hernia, inguinal (Chronic) Asymptomatic RIH Hydronephrosis (Chronic 02/19/14) Hyperlipidemia (Chronic) Hypertension, essential, benign (Chronic) Not on antihypertensive medications. Moderately well controlled. Patient at high risk for falls, so I hesitate to add blood pressure medications. His blood pressure is acceptable today. Lumbar back pain (Chronic 08/04/13) Recent lumbar decompression Malignant neoplasm of prostate (Chronic) 2000 Minor head injury (Resolved) Myofascial pain (Resolved) Left trapezius and posterior paraspinal muscles Night sweats (Chronic) Mild, afebrile. Possibly secondary to hormone imbalance such as testosterone deficiency. 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 Repeat steroid injection today. Tolerated well. Tendinopathy of right rotator cuff (Chronic) Steroid injection January 2019. Repeat today. 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 2014. History of colonoscopy (Resolved 01/03/12) Tubular adenoma - due 01/03/2017 03/10/17-diverticuli. No more screening colonoscopies. 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 smoking status: Never smoker alcohol intake frequency: former alcohol drinker substance use type: does not use additional history: Formerly used chewing tobacco Denies alcohol use Does not use a cane or walker Lives at home with his MEDS/ALLERGIES Home Medications and Allergies Home Medications Medication Instructions Recorded Confirmed Type aspirin 81 mg tablet,delayed 81 mg PO QDAY 03/15/16 05/24/20 History release Adult Multi Gummies 1 tab PO DAILY 03/06/17 05/24/20 History atorvastatin 10 mg tablet 10 mg PO QDAY #90 tab 10/20/19 05/24/20 Rx tamsulosin 0.4 mg capsule 0.4 mg PO QDAY #90 cap 02/17/20 05/24/20 Rx Allergies Allergy/AdvReac Type Severity Reaction Status Date / Time No Known Drug Allergies Allergy Verified 04/21/20 13:07 Physical Examination Vital Signs Vital signs: Temp Pulse Resp BP Pulse Ox 99.3 F H 83 24 H 91/45 92 05/24/20 16:31 05/24/20 16:31 05/24/20 16:31 05/24/20 16:31 05/24/20 16:31 Results Labs Result diagrams: 05/24/20 12:19 05/24/20 12:19 Labs: Abnormal lab results 05/24/20 05/24/20 05/24/20 Range/Units 12:19 12:19 12:19 RBC 4.47 L (4.63-6.08) M/mcL Gran % 90.4 H (38.0-78.0) % Lymph % (Auto) 8.2 L (15.5-49.0) % [place] % (Auto) 0.8 L (1.0-12.0) % Lymph # (Auto) 0.54 L (1.50-4.80) K/mcL [place] # (Auto) 0.05 L (0.10-0.90) K/mcL POC PT (11.9-14.5) sec POC INR (0.9-1.2) VBG Lactic Acid 2.7 H (0.5-2.0) mmol/L Anion Gap 17.0 H (8-16) Glucose 113 H (70-105) mg/dL Albumin/Globulin Ratio 0.9 L (1.0-2.3) Urine Protein (NEG) mg/dL Urine Occult Blood (<0.03) mg/dL Ur Leukocyte Esterase (NEG) /uL Urine RBC (0-1) /hpf Urine WBC (0-4) /hpf Urine Bacteria (0) /hpf 05/24/20 05/24/20 Range/Units 12:23 12:24 RBC (4.63-6.08) M/mcL Gran % (38.0-78.0) % Lymph % (Auto) (15.5-49.0) % [place] % (Auto) (1.0-12.0) % Lymph # (Auto) (1.50-4.80) K/mcL [place] # (Auto) (0.10-0.90) K/mcL POC PT 15.6 H (11.9-14.5) sec POC INR 1.3 H (0.9-1.2) VBG Lactic Acid (0.5-2.0) mmol/L Anion Gap (8-16) Glucose (70-105) mg/dL Albumin/Globulin Ratio (1.0-2.3) Urine Protein 30 A (NEG) mg/dL Urine Occult Blood 0.2 A (<0.03) mg/dL Ur Leukocyte Esterase 250 A (NEG) /uL Urine RBC 4 H (0-1) /hpf Urine WBC 30 H (0-4) /hpf Urine Bacteria Mod A (0) /hpf Diabetes panel 05/24/20 Range/Units 12:19 Sodium 137 (133-145) mmol/L Potassium 3.5 (3.3-5.1) mmol/L Chloride 98 (96-108) mmol/L Carbon Dioxide 22 (22-30) mmol/L BUN 16 (8-23) mg/dl Creatinine 1.2 (0.7-1.2) mg/dl Glucose 113 H (70-105) mg/dL Calcium 9.0 (8.6-10.4) mg/dl AST 23 (0-37) U/l ALT 31 (0-40) U/l Alkaline Phosphatase 78 (39-117) U/L Total Protein 6.9 (5.9-8.4) gm/dL Albumin 3.3 (3.2-5.2) gm/dL Calcium panel 05/24/20 Range/Units 12:19 Calcium 9.0 (8.6-10.4) mg/dl Albumin 3.3 (3.2-5.2) gm/dL Pituitary panel 05/24/20 Range/Units 12:19 Sodium 137 (133-145) mmol/L Potassium 3.5 (3.3-5.1) mmol/L Chloride 98 (96-108) mmol/L Carbon Dioxide 22 (22-30) mmol/L BUN 16 (8-23) mg/dl Creatinine 1.2 (0.7-1.2) mg/dl Glucose 113 H (70-105) mg/dL Calcium 9.0 (8.6-10.4) mg/dl Adrenal panel 05/24/20 Range/Units 12:19 Sodium 137 (133-145) mmol/L Potassium 3.5 (3.3-5.1) mmol/L Chloride 98 (96-108) mmol/L Carbon Dioxide 22 (22-30) mmol/L BUN 16 (8-23) mg/dl Creatinine 1.2 (0.7-1.2) mg/dl Glucose 113 H (70-105) mg/dL Calcium 9.0 (8.6-10.4) mg/dl Total Bilirubin 0.9 (0.0-1.0) mg/dL AST 23 (0-37) U/l ALT 31 (0-40) U/l Alkaline Phosphatase 78 (39-117) U/L Total Protein 6.9 (5.9-8.4) gm/dL Albumin 3.3 (3.2-5.2) gm/dL All other labs normal. A/P Narrative A/P Narrative: Narrative: Time Spent With Patient Time: Total time spent is greater than 50% in coordination of care (as documented) at patient's floor/unit and/or counseling patient:
[2020-05-24] MEDS: 0.9 % SODIUM CHLORIDE 1,000 ML IV SCH (17:26)
[2020-05-24 17:58] LABS: Anisocytosis 1+ (NONE SEEN); Band Neutrophils % 34 % (0-10); Lymphocytes % 8 % (15-49); Monocytes % (Manual) 1 % (1-12); Platelet Estimate NORMAL (NORMAL); RBC Morphology ABNORM (NORMAL); Segmented Neutrophils % 57 % (38-78)
[2020-05-24] MEDS: ACETAMINOPHEN 325 MG TABLET PO PRN (19:58)
[2020-05-24] MEDS: ATORVASTATIN 10 MG TABLET PO SCH (21:04)
[2020-05-24] MEDS: DOCUSATE SODIUM 100 MG CAPSULE PO SCH (21:04)
[2020-05-24] MEDS: 0.9 % SODIUM CHLORIDE 10 ML SYRINGE IV SCH (21:05)
[2020-05-25] MEDS: ACETAMINOPHEN 325 MG TABLET PO PRN (01:10)
[2020-05-25] MEDS: 0.9 % SODIUM CHLORIDE 1,000 ML IV SCH (02:44)
[2020-05-25] MEDS: PIPERACILLIN SODIUM/TAZOBACTAM 3.375 GM in DEXTROSE 5% IN WATER 50 ML IV SCH ×3 (03:43→21:49)
[2020-05-25] MEDS: 0.9 % SODIUM CHLORIDE 10 ML SYRINGE IV SCH ×3 (05:00→21:49)
[2020-05-25 06:48] LABS: Hematocrit 31.8 % (40.1-51.0); Hemoglobin 10.7 g/dL (13.7-17.5); Mean Cell Volume 92.2 fL (80.0-100.0); Mean Corpuscular HGB Conc 33.6 g/dL (31.0-36.0); Mean Platelet Volume 9.8 fL (7.4-10.4); Platelet Count 289 K/mcL (140-440); RBC 3.45 M/mcL (4.63-6.08); WBC 13.3 K/mcL (4.50-11.00)
[2020-05-25] MEDS: PANTOPRAZOLE 40 MG TABLET PO SCH (07:26)
[2020-05-25 07:58] LABS: ALT/SGPT 22 U/l (0-40); AST/SGOT 23 U/l (0-37); Albumin 2.3 gm/dL (3.2-5.2); Albumin/Globulin Ratio 0.9 (1.0-2.3); Alkaline Phosphatase 66 U/L (39-117); Bilirubin,Direct 0.3 mg/dL (0.0-0.3); Bilirubin,Total 0.7 mg/dL (0.0-1.0); Blood Urea Nitrogen 16 mg/dl (8-23); Calcium 7.6 mg/dl (8.6-10.4); Carbon Dioxide 19 mmol/L (22-30); Chloride 109 mmol/L (96-108); Globulin 2.7 gm/dL (2.2-3.7); Glomerular Filtration Rate 70; Glucose 115 mg/dL (70-105); Lactate Dehydrogenase 197 U/L (94-250); Phosphorous 2.3 mg/dL (2.7-4.5); Triglycerides 64 mg/dl (<150); Uric Acid 3.6 mg/dL (2.5-8.0)
--- NOTE | 2020-05-25 07:59 | Internal Med Progress Note ---
SUBJECTIVE Subjective Patient information: Note initiated : 05/25/20 at 7:53 am Service Date, if different from initiated Date: [] Patient: Christian Cruz a 80 y/o M admitted on 05/24/20 for Altered LOC. Chief Complaint: [] Interval history: Narrative: Mr. Cruz is a 80 year old M Presents to the ED with weakness altered mental status. History obtained from patient and . Sounds like other than being a little bit weak he was in his normal state of health this morning. When out did some weed whacking and came in a sat in his chair and fell asleep. When his came in and woke him up he seemed confused. He got up to go the bathroom and walked to the front door instead. said he he has been a little bit weak past few days. He fell a week ago while in the yard picking up dog feces. When asking him about abdominal pain or diarrhea says did have a little bit of achiness in his stomach this morning but none now. He states that constipation. Denies any abnormalities in his urine. Work-up in the ED was significant for fever and he had a lactate of 2.7. He was initially hypoxic but that has seemed to resolved in the ED likely related to his obtundation. He was difficult to arouse when he first arrived but after IV fluids and antibiotics patient is much more coherent. CT head chest abdomen pelvis were done which were unremarkable except for some mild colitis of the descending colon. CT chest was done with contrast did not show any pulmonary emboli. CT brain showed mild atrophy and chronic ischemic changes. Analysis with leukocyte esterase WBCs, moderate bacteria. Patient feels like he is clear minded now. He has occasional cough which is relatively normal for him given he has sinus drainage. Dates he had a little shortness of breath this morning but denies currently. In the ED is blood pressure dropped and after several liters of fluids he was started on Levophed low-dose. 05/25 Doing better today. Levophed still on but down to 3-4mcs. No new pains or complaints. Blood culture growing gram-negative bacillus. Review of Systems: denies headache/fever/chills/nausea/vomiting/chest or abdominal pain/cough/dyspnea/diarrhea. Otherwise see above. Constitutional Vitals: Vital Signs Temp Pulse Resp BP Pulse Ox 99.3 F H 62 23 H 105/56 95 05/25/20 07:01 05/25/20 07:01 05/25/20 07:01 05/25/20 07:01 05/25/20 07:01 Period Temp Pulse Resp BP Sys/John Pulse Ox Last 24 Hr 98 F-105.4 F 22-136 9-44 80-172/44-143 75-100 Intake and Output 05/24/20 05/25/20 05/25/20 21:59 05:59 13:59 Intake Total 3561 1281 Output Total 720 890 Balance 2841 391 Weight 81.42 kg Intake & Output: Intake & Output 05/24/20 05/25/20 05/25/20 21:59 05:59 13:59 Intake Total 3561 1281 Output Total 720 890 Balance 2841 391 Weight 81.42 kg Intake: IV 3061 1021 Sodium Chloride 0.9% 1,000 ml @ 3000 930 100 mls/hr IV .Q10H JURGEN Rx#: [id number] Levophed 8 mg In Sodium 61 41 Chloride 0.9% 242 ml @ 10 MCG/ MIN 18.75 mls/hr IV Q14H JURGEN Rx #:[id number] Zosyn 3.375 gm In Dextrose 5% 50 in Water 50 ml @ 100 mls/hr IV Q8H JURGEN Rx#:[id number] Oral 500 260 Output: Urine Catheter Amount 720 890 Other: Meal Dinner Percent of Meal Consumed 75% Urine Appearance Clear Clear Uretheral ([place]) Clear Urine Color Pale Pale Uretheral ([place]) Pale Urine Odor Normal # [place] 1 Exam: General: Alert, Awake, No acute Distress Eyes/N/T: EOMI, Head/Neck: neck supple, CV: Tachycardic but regular, No murmurs, Pulm: Clear b/l, no wheezing/rhonchi/rales Abd: soft, nontender, +BS x4 Ext: no clubbing/cyanosis/edema Neuro: Alert, no focal deficits, moves all extremities, Skin: warm/dry OBJ DATA Labs CBC & Chem 7: 05/25/20 05:00 05/25/20 05:00 Labs: Abnormal Lab Results 05/25/20 05/24/20 05/24/20 05:00 12:24 12:23 WBC 13.3 H RBC 3.45 L Hgb 10.7 L Hct 31.8 L RDW 15.0 H Gran % Lymph % (Auto) [place] % (Auto) Lymph # (Auto) [place] # (Auto) Band Neutrophils % Lymphocytes % RBC Morphology Anisocytosis POC PT 15.6 H POC INR 1.3 H VBG Lactic Acid Anion Gap Glucose Albumin/Globulin Ratio Urine Protein 30 A Urine Occult Blood 0.2 A Ur Leukocyte Esterase 250 A Urine RBC 4 H Urine WBC 30 H Urine Bacteria Mod A 05/24/20 05/24/20 05/24/20 12:19 12:19 12:19 WBC RBC Hgb Hct RDW Gran % Lymph % (Auto) [place] % (Auto) Lymph # (Auto) [place] # (Auto) Band Neutrophils % 34 H Lymphocytes % 8 L RBC Morphology Abnorm A Anisocytosis 1+ A POC PT POC INR VBG Lactic Acid 2.7 H Anion Gap 17.0 H Glucose 113 H Albumin/Globulin Ratio 0.9 L Urine Protein Urine Occult Blood Ur Leukocyte Esterase Urine RBC Urine WBC Urine Bacteria 05/24/20 12:19 WBC RBC 4.47 L Hgb Hct RDW Gran % 90.4 H Lymph % (Auto) 8.2 L [place] % (Auto) 0.8 L Lymph # (Auto) 0.54 L [place] # (Auto) 0.05 L Band Neutrophils % Lymphocytes % RBC Morphology Anisocytosis POC PT POC INR VBG Lactic Acid Anion Gap Glucose Albumin/Globulin Ratio Urine Protein Urine Occult Blood Ur Leukocyte Esterase Urine RBC Urine WBC Urine Bacteria Meds: Medications Acetaminophen (Tylenol) 650 mg PO Q4-6HP PRN PRN Reason: PAIN/FEVER > 101 Last Admin: 05/25/20 01:10 Dose: 650 mg Documented by: Albuterol/Ipratropium (Duoneb) 3 ml NEB Q4HRT PRN PRN Reason: dyspnea Atorvastatin Calcium (Lipitor) 10 mg PO HS [facility] Last Admin: 05/24/20 21:04 Dose: 10 mg Documented by: Bisacodyl (Dulcolax) 10 mg DE Q2-3DAYS PRN PRN Reason: Constipation Docusate Sodium (Colace) 100 mg PO BID [facility] Last Admin: 05/24/20 21:04 Dose: 100 mg Documented by: Enoxaparin Sodium (Lovenox) 40 mg SQ DAILY [facility] Norepinephrine Bitartrate 8 mg (/ Sodium Chloride) 250 mls @ 18.75 mls/hr IV Q14H JURGEN; Protocol Sodium Chloride (Sodium Chloride 0.9%) 1,000 mls @ 100 mls/hr IV .Q10H [facility]URGEN Stop: 05/25/20 12:41 Last Admin: 05/25/20 02:44 Dose: 100 mls/hr Documented by: Piperacillin Sod/Tazobactam (Sod 3.375 gm/ Dextrose) 50 mls @ 100 mls/hr IV Q8H [facility]URGEN; Protocol Last Infusion: 05/25/20 04:20 Dose: Infused Documented by: Ondansetron HCl (Zofran) 4 mg IV Q4-6HP PRN PRN Reason: Nausea And Vomiting Last Admin: 05/25/20 02:43 Dose: 4 mg Documented by: Pantoprazole Sodium (Protonix) 40 mg PO QAMAC [facility]URGEN Last Admin: 05/25/20 07:26 Dose: 40 mg Documented by: Senna (Senokot) 2 tab PO HSP PRN PRN Reason: Constipation Sodium Chloride (Saline Flush) 10 ml IV Q8 [facility]GEN Last Admin: 05/25/20 05:00 Dose: Not Given Documented by: Tamsulosin HCl (Flomax) 0.4 mg PO QDAY JURGEN A/P Narrative A/P Narrative: Narrative: A: *Septic shock: source vs GI source /colitis: -lactic acidosis resolved -fever curve improving -Bandemia improving *Bacteremia(GNB): *AMS (confusion/obtundation): clearing in ED. much improved *UTI: *colitis, mild: *TRA, mild: *HLD: * P: -Wean off vasopressors -zosyn, pending BC/UC -monitor UOP - -PT/OT -ppx: Lovenox DNR Time Spent With Patient Time: Total time spent is greater than 50% in coordination of care (as documented) at patient's floor/unit and/or counseling patient: QUALITY VTE Deep Vein Thrombosis/Pulmonary Embolism Present on Admission: No
[2020-05-25] MEDS ORDERED: ACETAMINOPHEN 650 MG/65 ML BOTTLE IV PRN (08:00)
[2020-05-25 08:23] LABS: Band Neutrophils % 14 % (0-10); Monocytes % (Manual) 3 % (1-12); Myelocytes % 1 % (0-0); Platelet Estimate NORMAL (NORMAL); RBC Morphology NORMAL (NORMAL); Segmented Neutrophils % 82 % (38-78)
[2020-05-25] MEDS ORDERED: ALBUMIN HUMAN 12.5 GM/50 ML BAG IV ONE (08:45)
[2020-05-25] MEDS ORDERED: POTASSIUM CHLORIDE 20 MEQ TABLET PO ONE (08:53)
[2020-05-25] MEDS: ENOXAPARIN 40 MG/0.4 ML SYRINGE SQ SCH (09:07)
[2020-05-25] MEDS: TAMSULOSIN 0.4 MG CAPSULE PO SCH (09:07)
[2020-05-25] MEDS: DOCUSATE SODIUM 100 MG CAPSULE PO SCH ×2 (09:07→20:54)
[2020-05-25] MEDS: NOREPINEPHRINE BITARTRATE 8 MG in 0.9 % SODIUM CHLORIDE 242 ML IV SCH ×2 (12:00→17:15)
[2020-05-25] MEDS: 0.9 % SODIUM CHLORIDE 250 ML IV SCH (17:15)
[2020-05-25] MEDS ORDERED: NOREPINEPHRINE BITARTRATE 4 MG/4 ML VIAL IV ONE (17:15)
[2020-05-25] MEDS: ATORVASTATIN 10 MG TABLET PO SCH (20:54)
[2020-05-26] MEDS: ACETAMINOPHEN 325 MG TABLET PO PRN ×2 (02:54→20:58)
[2020-05-26] MEDS: 0.9 % SODIUM CHLORIDE 250 ML IV SCH ×3 (05:32→16:19)
[2020-05-26] MEDS: 0.9 % SODIUM CHLORIDE 10 ML SYRINGE IV SCH ×3 (05:51→20:58)
[2020-05-26] MEDS: PIPERACILLIN SODIUM/TAZOBACTAM 3.375 GM in DEXTROSE 5% IN WATER 50 ML IV SCH (05:51)
[2020-05-26] MEDS: PANTOPRAZOLE 40 MG TABLET PO SCH (07:21)
[2020-05-26 07:23] LABS: Hemoglobin 10.7 g/dL (13.7-17.5); Mean Corpuscular HGB Conc 33.4 g/dL (31.0-36.0); Mean Platelet Volume 9.8 fL (7.4-10.4); Platelet Count 284 K/mcL (140-440); RBC 3.48 M/mcL (4.63-6.08); WBC 11.3 K/mcL (4.50-11.00)
[2020-05-26 07:51] LABS: ALT/SGPT 21 U/l (0-40); AST/SGOT 31 U/l (0-37); Albumin 2.4 gm/dL (3.2-5.2); Albumin/Globulin Ratio 0.9 (1.0-2.3); Alkaline Phosphatase 64 U/L (39-117); Bilirubin,Total 0.3 mg/dL (0.0-1.0); Blood Urea Nitrogen 10 mg/dl (8-23); Calcium 7.8 mg/dl (8.6-10.4); Carbon Dioxide 20 mmol/L (22-30); Globulin 2.8 gm/dL (2.2-3.7); Glomerular Filtration Rate 70; Glucose 100 mg/dL (70-105); Lactate Dehydrogenase 184 U/L (94-250); Triglycerides 109 mg/dl (<150); Uric Acid 2.5 mg/dL (2.5-8.0)
[2020-05-26 07:55] LABS: Bilirubin,Direct < 0.2 mg/dL (0.0-0.3); Chloride 110 mmol/L (96-108); Phosphorous 1.8 mg/dL (2.7-4.5)
[2020-05-26 08:39] LABS: Band Neutrophils % 12 % (0-10); Eosinophils % (Manual) 2 % (0-7); Lymphocytes % 6 % (15-49); Monocytes % (Manual) 1 % (1-12); Myelocytes % 1 % (0-0); Platelet Estimate NORMAL (NORMAL); RBC Morphology NORMAL (NORMAL); Segmented Neutrophils % 78 % (38-78)
[2020-05-26] MEDS: NOREPINEPHRINE BITARTRATE 8 MG in 0.9 % SODIUM CHLORIDE 242 ML IV SCH ×2 (08:51→23:11)
[2020-05-26] MEDS: TAMSULOSIN 0.4 MG CAPSULE PO SCH (09:12)
[2020-05-26] MEDS: ENOXAPARIN 40 MG/0.4 ML SYRINGE SQ SCH (09:12)
[2020-05-26] MEDS: DOCUSATE SODIUM 100 MG CAPSULE PO SCH ×2 (09:13→20:57)
[2020-05-26] MEDS: POTASSIUM CHLORIDE 20 MEQ PACKET PO SCH ×2 (10:17→20:57)
--- NOTE | 2020-05-26 10:39 | Internal Med Progress Note ---
SUBJECTIVE Subjective Patient information: Note initiated : 05/26/20 at 10:34 am Service Date, if different from initiated Date: [] Patient: Christian Cruz 80 y/o M admitted on 05/24/20 for Altered LOC. Chief Complaint: Presents to the ED with weakness altered mental status. History obtained from patient and . Sounds like other than being a little bit weak he was in his normal state of health this morning. When out did some weed whacking and came in a sat in his chair and fell asleep. When his came in and woke him up he seemed confused. He got up to go the bathroom and walked to the front door instead. said he he has been a little bit weak past few days. He fell a week ago while in the yard picking up dog feces. When asking him about abdominal pain or diarrhea says did have a little bit of achiness in his stomach this morning but none now. He states that constipation. Denies any abnormalities in his urine. Work-up in the ED was significant for fever and he had a lactate of 2.7. He was initially hypoxic but that has seemed to resolved in the ED likely related to his obtundation. He was difficult to arouse when he first arrived but after IV fluids and antibiotics patient is much more coherent. CT head chest abdomen pelvis were done which were unremarkable except for some mild colitis of the descending colon. CT chest was done with contrast did not show any pulmonary emboli. CT brain showed mild atrophy and chronic ischemic changes. Analysis with leukocyte esterase WBCs, moderate bacteria. Patient feels like he is clear minded now. He has occasional cough which is relatively normal for him given he has sinus drainage. Dates he had a little shortness of breath this morning but denies currently. In the ED is blood pressure dropped and after several liters of fluids he was started on Levophed low-dose. 05/25 Doing better today. Levophed still on but down to 3-4mcs. No new pains or complaints. Blood culture growing gram-negative bacillus. 05/25 Patient continues to require Levophed overnight and blood pressure dropped to 80s Ordered random cortisol level, echocardiogram and TSH level to look for any pump failure Continue broad-spectrum antibiotic Pending cultures Ordered potassium replaced Interval history: Narrative: Pertinent ROS: General-denied any fever overnight Chest-no chest pain no difficulty in breathing no shortness of breath Cardiac-no chest pain no palpitations Abdominal-continued having pain loose stools Urinary-no pain continued having good urine output Musculoskeletal-continued having pain back pain Neuro-no seizure no anxiety Psychiatric-no anxiety no depression Constitutional Vitals: Vital Signs Temp Pulse Resp BP Pulse Ox 97.8 F 66 21 124/64 99 05/26/20 10:00 05/26/20 10:00 05/26/20 10:00 05/26/20 10:00 05/26/20 10:00 Period Temp Pulse Resp BP Sys/John Pulse Ox Last 24 Hr 95.7 F-101.1 F 42-79 10-29 81-139/47-94 90-99 Intake and Output 05/25/20 05/26/20 05/26/20 21:59 05:59 13:59 Intake Total 1036 138 900 Output Total 660 1320 820 Balance 376 -1182 80 Weight 178 lb 6.4 oz Intake & Output: Intake & Output 05/25/20 05/26/20 05/26/20 21:59 05:59 13:59 Intake Total 1036 138 900 Output Total 660 1320 820 Balance 376 -1182 80 Weight 178 lb 6.4 oz Intake: IV 136 138 180 Sodium Chloride 0.9% 250 ml @ 88 130 20 mls/hr IV .[id number] [facility] Rx#: [id number] Levophed 8 mg In Sodium 21 Chloride 0.9% 242 ml @ 10 MCG/ MIN 18.75 mls/hr IV Q14H [facility] Rx #:[id number] Zosyn 3.375 gm In Dextrose 5% 50 50 50 in Water 50 ml @ 100 mls/hr IV Q8H [facility] Rx#:[id number] Oral 900 720 Output: Urine Catheter Amount 660 1320 820 Other: Meal Dinner Breakfast Percent of Meal Consumed 100% 75% Feeding Ability Independent Urine Appearance Clear Clear Sediment Uretheral (Ingram) Clear Clear Sediment Urine Color Pale Pale Pale Uretheral (Ingram) Pale Pale Pale Urine Odor Normal Head Head exam: Present atraumatic and normal inspection Eye Eye exam: Present conjunctival injection and EOMI ENT ENT exam: Present mucous membranes dry and normal external ear exam Respiratory Respiratory exam: Present decreased breath sounds; Absent accessory muscle use and respiratory distress Cardiovascular Cardiovascular exam: Present irregular rhythm; Absent gallop and +S3 GI/Abdominal GI/Abdominal exam: Present diminished bowel sounds; Absent guarding and tenderness Extremities Exam Extremities exam: Absent calf tenderness, joint swelling and pedal edema Neurological Exam Neurological exam: Present alert, CN II-XII intact and oriented X3; Absent abnormal gait OBJ DATA Labs CBC & Chem 7: 05/26/20 05:05 05/26/20 05:05 Labs: Abnormal Lab Results 05/26/20 05/26/20 05/25/20 05:05 05:05 05:00 WBC 11.3 H RBC 3.48 L Hgb 10.7 L Hct 32.0 L RDW 15.0 H Gran % Lymph % (Auto) Clay % (Auto) Lymph # (Auto) Clay # (Auto) Seg Neutrophils % Band Neutrophils % 12 H Lymphocytes % 6 L Myelocytes % 1 H RBC Morphology Anisocytosis POC PT POC INR VBG Lactic Acid Potassium 3.2 L Chloride 110 H 109 H Carbon Dioxide 20 L 19 L Anion Gap Glucose 115 H Calcium 7.8 L 7.6 L Phosphorus 1.8 L 2.3 L Total Protein 5.2 L 5.0 L Albumin 2.4 L 2.3 L Albumin/Globulin Ratio 0.9 L 0.9 L Urine Protein Urine Occult Blood Ur Leukocyte Esterase Urine RBC Urine WBC Urine Bacteria 05/25/20 05/24/20 05/24/20 05:00 12:24 12:23 WBC 13.3 H RBC 3.45 L Hgb 10.7 L Hct 31.8 L RDW 15.0 H Gran % Lymph % (Auto) Clay % (Auto) Lymph # (Auto) Clay # (Auto) Seg Neutrophils % 82 H Band Neutrophils % 14 H Lymphocytes % Myelocytes % 1 H RBC Morphology Anisocytosis POC PT 15.6 H POC INR 1.3 H VBG Lactic Acid Potassium Chloride Carbon Dioxide Anion Gap Glucose Calcium Phosphorus Total Protein Albumin Albumin/Globulin Ratio Urine Protein 30 A Urine Occult Blood 0.2 A Ur Leukocyte Esterase 250 A Urine RBC 4 H Urine WBC 30 H Urine Bacteria Mod A 05/24/20 05/24/20 05/24/20 12:19 12:19 12:19 WBC RBC Hgb Hct RDW Gran % Lymph % (Auto) Clay % (Auto) Lymph # (Auto) Clay # (Auto) Seg Neutrophils % Band Neutrophils % 34 H Lymphocytes % 8 L Myelocytes % RBC Morphology Abnorm A Anisocytosis 1+ A POC PT POC INR VBG Lactic Acid 2.7 H Potassium Chloride Carbon Dioxide Anion Gap 17.0 H Glucose 113 H Calcium Phosphorus Total Protein Albumin Albumin/Globulin Ratio 0.9 L Urine Protein Urine Occult Blood Ur Leukocyte Esterase Urine RBC Urine WBC Urine Bacteria 05/24/20 12:19 WBC RBC 4.47 L Hgb Hct RDW Gran % 90.4 H Lymph % (Auto) 8.2 L Clay % (Auto) 0.8 L Lymph # (Auto) 0.54 L Clay # (Auto) 0.05 L Seg Neutrophils % Band Neutrophils % Lymphocytes % Myelocytes % RBC Morphology Anisocytosis POC PT POC INR VBG Lactic Acid Potassium Chloride Carbon Dioxide Anion Gap Glucose Calcium Phosphorus Total Protein Albumin Albumin/Globulin Ratio Urine Protein Urine Occult Blood Ur Leukocyte Esterase Urine RBC Urine WBC Urine Bacteria Meds: Medications Acetaminophen (Tylenol) 650 mg PO Q4-6HP PRN PRN Reason: PAIN/FEVER > 101 Last Admin: 05/26/20 02:54 Dose: 650 mg Documented by: Albuterol/Ipratropium (Duoneb) 3 ml NEB Q4HRT PRN PRN Reason: dyspnea Atorvastatin Calcium (Lipitor) 10 mg PO HS [facility] Last Admin: 05/25/20 20:54 Dose: 10 mg Documented by: Bisacodyl (Dulcolax) 10 mg [place] Q2-3DAYS PRN PRN Reason: Constipation Docusate Sodium (Colace) 100 mg PO BID [facility] Last Admin: 05/26/20 09:13 Dose: 100 mg Documented by: Enoxaparin Sodium (Lovenox) 40 mg SQ DAILY [facility] Last Admin: 05/26/20 09:12 Dose: 40 mg Documented by: Norepinephrine Bitartrate 8 mg (/ Sodium Chloride) 250 mls @ 18.75 mls/hr IV Q14H [facility]; Protocol Last Admin: 05/26/20 08:51 Dose: Not Given Documented by: Piperacillin Sod/Tazobactam (Sod 3.375 gm/ Dextrose) 50 mls @ 100 mls/hr IV Q8H [facility]; Protocol Last Infusion: 05/26/20 06:41 Dose: Infused Documented by: Acetaminophen (Ofirmev) 650 mg in 65 mls @ 130 mls/hr IV Q6HP PRN; Protocol PRN Reason: PAIN/FEVER > 101 Last Infusion: 05/25/20 16:00 Dose: Infused Documented by: Sodium Chloride (Sodium Chloride 0.9%) 250 mls @ 20 mls/hr IV .[id number] [facility] Last Admin: 05/26/20 08:30 Dose: 20 mls/hr Documented by: Ondansetron HCl (Zofran) 4 mg IV Q4-6HP PRN PRN Reason: Nausea And Vomiting Last Admin: 05/25/20 02:43 Dose: 4 mg Documented by: Pantoprazole Sodium (Protonix) 40 mg PO QAMAC [facility] Last Admin: 05/26/20 07:21 Dose: 40 mg Documented by: Potassium Chloride (Klor-Con) 40 meq PO BID [facility] Stop: 05/27/20 23:00 Last Admin: 05/26/20 10:17 Dose: 40 meq Documented by: Senna (Senokot) 2 tab PO HSP PRN PRN Reason: Constipation Sodium Chloride (Saline Flush) 10 ml IV Q8 [facility] Last Admin: 05/26/20 05:51 Dose: 10 ml Documented by: Tamsulosin HCl (Flomax) 0.4 mg PO QDAY [facility] Last Admin: 05/26/20 09:12 Dose: 0.4 mg Documented by: A/P Narrative A/P Narrative: Narrative: Septic shock Bacteremia-probable GI versus source Pending cultures On Levophed for blood pressure to keep the map more than 65 and systolic blood pressure more than 90 Plan Ordered echocardiogram to evaluate the pump as the patient is persistently hypotensive Ordered random cortisol level TSH ordered Continue broad-spectrum antibiotic Zosyn Continue IV fluids and Levophed to keep the map more than 65 and systolic blood pressure more than 90 Hypokalemia Ordered replacement Acute delirium Improving Seroquel 12.5 at bedtime as needed Probable acute colitis Monitoring daily abdominal exam Symptoms improving Continue physical therapy DVT prophylaxis on Lovenox Expected length of stay-at least 2 more midnights CODE STATUS DNR Time Spent With Patient Time: Total critical care time spent 40 minutes CPT code 63259 total time spent is greater than 50% in coordination of care (as documented) at patient's floor/unit and/or counseling patient: QUALITY VTE Deep Vein Thrombosis/Pulmonary Embolism Present on Admission: No
[2020-05-26 11:24] LABS: Thyroid Stimulating Hormone 2.3 uIU/ml (0.27-5.01)
[2020-05-26] MEDS: cefTRIAXone 2 GM in DEXTROSE 5% IN WATER 50 ML IV SCH (14:43)
[2020-05-26] MEDS: ATORVASTATIN 10 MG TABLET PO SCH (20:58)
[2020-05-27] MEDS: 0.9 % SODIUM CHLORIDE 10 ML SYRINGE IV SCH ×3 (05:43→20:22)
[2020-05-27] MEDS: 0.9 % SODIUM CHLORIDE 250 ML IV SCH ×2 (05:49→17:01)
[2020-05-27] MEDS: PANTOPRAZOLE 40 MG TABLET PO SCH (06:30)
[2020-05-27 08:03] LABS: ALT/SGPT 34 U/l (0-40); AST/SGOT 42 U/l (0-37); Albumin 2.5 gm/dL (3.2-5.2); Albumin/Globulin Ratio 0.7 (1.0-2.3); Alkaline Phosphatase 86 U/L (39-117); Bilirubin,Total 0.3 mg/dL (0.0-1.0); Blood Urea Nitrogen 16 mg/dl (8-23); Calcium 8.8 mg/dl (8.6-10.4); Carbon Dioxide 24 mmol/L (22-30); Chloride 107 mmol/L (96-108); Globulin 3.4 gm/dL (2.2-3.7); Glomerular Filtration Rate 70; Glucose 81 mg/dL (70-105)
[2020-05-27] MEDS: DOCUSATE SODIUM 100 MG CAPSULE PO SCH ×2 (08:22→20:21)
[2020-05-27] MEDS: POTASSIUM CHLORIDE 20 MEQ PACKET PO SCH (09:17)
[2020-05-27] MEDS: cefTRIAXone 2 GM in DEXTROSE 5% IN WATER 50 ML IV SCH (09:18)
[2020-05-27] MEDS: TAMSULOSIN 0.4 MG CAPSULE PO SCH (09:18)
[2020-05-27] MEDS: ENOXAPARIN 40 MG/0.4 ML SYRINGE SQ SCH (09:18)
[2020-05-27] MEDS ORDERED: NOREPINEPHRINE BITARTRATE 8 MG in 0.9 % SODIUM CHLORIDE 242 ML IV PRN ×2 (10:30→15:42)
[2020-05-27] MEDS ORDERED: BISACODYL 10 MG SUPP.RECT PR PRN (15:42)
[2020-05-27] MEDS ORDERED: SENNOSIDES 1 TABLET PO PRN (15:42)
[2020-05-27] MEDS ORDERED: IPRATROPIUM/ALBUTEROL 3 ML AMPUL.NEB NEB PRN (15:42)
[2020-05-27] MEDS ORDERED: ACETAMINOPHEN 650 MG/65 ML BOTTLE IV PRN (15:42)
[2020-05-27] MEDS ORDERED: ONDANSETRON 4 MG/2 ML VIAL IV PRN (15:42)
[2020-05-27] MEDS: ACETAMINOPHEN 325 MG TABLET PO PRN (20:22)
[2020-05-27] MEDS: ATORVASTATIN 10 MG TABLET PO SCH (20:22)
[2020-05-27] MEDS ORDERED: POTASSIUM CHLORIDE 20 MEQ PACKET PO SCH (21:00)
--- NOTE | 2020-05-27 22:09 | Internal Med Progress Note ---
SUBJECTIVE Subjective Patient information: Note initiated : 05/27/20 at 10:07 pm Service Date, if different from initiated Date: [] Patient: Christian Cruz 80 y/o M admitted on 05/24/20 for Altered LOC. Chief Complaint: [] Presents to the ED with weakness altered mental status. History obtained from patient and . Sounds like other than being a little bit weak he was in his normal state of health this morning. When out did some weed whacking and came in a sat in his chair and fell asleep. When his came in and woke him up he seemed confused. He got up to go the bathroom and walked to the front door instead. said he he has been a little bit weak past few days. He fell a week ago while in the yard picking up dog feces. When asking him about abdominal pain or diarrhea says did have a little bit of achiness in his stomach this morning but none now. He states that constipation. Denies any abnormalities in his urine. Work-up in the ED was significant for fever and he had a lactate of 2.7. He was initially hypoxic but that has seemed to resolved in the ED likely related to his obtundation. He was difficult to arouse when he first arrived but after IV fluids and antibiotics patient is much more coherent. CT head chest abdomen pelvis were done which were unremarkable except for some mild colitis of the descending colon. CT chest was done with contrast did not show any pulmonary emboli. CT brain showed mild atrophy and chronic ischemic changes. Analysis with leukocyte esterase WBCs, moderate bacteria. Patient feels like he is clear minded now. He has occasional cough which is relatively normal for him given he has sinus drainage. Dates he had a little shortness of breath this morning but denies currently. In the ED is blood pressure dropped and after several liters of fluids he was started on Levophed low-dose. 05/25 Doing better today. Levophed still on but down to 3-4mcs. No new pains or complaints. Blood culture growing gram-negative bacillus. 05/26 Patient continues to require Levophed overnight and blood pressure dropped to 80s Ordered random cortisol level, echocardiogram and TSH level to look for any pump failure Continue broad-spectrum antibiotic Pending cultures Ordered potassium replaced 05/27 Urine culture came back E. coli Blood culture gram-negative backslash-pending further report Most likely urine source causing bacteremia Sepsis improved Patient blood pressure improved and we stopped Levophed Patient will be transferred out of ICU Interval history: Narrative: Pertinent ROS: General-denied any fever overnight Chest-no chest pain no difficulty in breathing no shortness of breath Cardiac-no chest pain no palpitations Abdominal-continued having pain loose stools Urinary-no pain continued having good urine output Musculoskeletal-continued having pain back pain Neuro-no seizure no anxiety Psychiatric-no anxiety no depression Constitutional Vitals: Vital Signs Temp Pulse Resp BP Pulse Ox 91.0 F L 81 16 137/70 98 05/27/20 11:01 05/27/20 13:02 05/27/20 19:16 05/27/20 18:02 05/27/20 13:02 Period Temp Pulse Resp BP Sys/John Pulse Ox Last 24 Hr 91.0 F-98.5 F 57-86 10-28 107-137/60-101 95-99 Intake and Output 05/27/20 05/27/20 05/28/20 13:59 21:59 05:59 Intake Total 1590 600 Output Total 1520 920 Balance 70 -320 Intake & Output: Intake & Output 05/27/20 05/27/20 05/28/20 13:59 21:59 05:59 Intake Total 1590 600 Output Total 1520 920 Balance 70 -320 Intake: IV 50 Rocephin 2 gm In Dextrose 5% in 50 Water 50 ml @ 100 mls/hr IV Q24H [facility] Rx#:[id number] Oral 1540 600 Output: Urine Catheter Amount 1520 920 Other: Meal Lunch Dinner Percent of Meal Consumed 75% 100% Urine Appearance Clear Clear Uretheral (Ingram) Clear Clear Urine Color Pale Pale Uretheral (Ingram) Pale Bright Yellow Stool Size Moderate Stool Color Brown Stool Consistency Soft Teresita Loose # Bowel Movements 1 General appearance: no acute distress; no obese Head Head exam: Present atraumatic and normal inspection Eye Eye exam: Present EOMI; Absent periorbital swelling and scleral icterus ENT ENT exam: Present mucous membranes moist, normal exam and normal oropharynx Neck Neck exam: Present normal inspection; Absent lymphadenopathy and tenderness Respiratory Respiratory exam: Absent accessory muscle use, decreased breath sounds, rales, respiratory distress and wheezes Cardiovascular Cardiovascular exam: Absent bradycardia, gallop, JVD, RRR and +S4 GI/Abdominal GI/Abdominal exam: Present distended; Absent hypoactive bowel sounds, pulsatile mass and tenderness Extremities Exam Extremities exam: Present full ROM, normal capillary refill and normal inspection; Absent calf tenderness Neurological Exam Neurological exam: Present alert, oriented X3 and reflexes normal; Absent abnormal gait and motor sensory deficit Psychiatric Psychiatric exam: Absent agitated, anxious and depressed OBJ DATA Labs CBC & Chem 7: 05/26/20 05:05 05/27/20 05:15 Labs: Abnormal Lab Results 05/27/20 05/26/20 05/26/20 05:15 05:05 05:05 WBC 11.3 H RBC 3.48 L Hgb 10.7 L Hct 32.0 L RDW 15.0 H Seg Neutrophils % Band Neutrophils % 12 H Lymphocytes % 6 L Myelocytes % 1 H Potassium Chloride 110 H Carbon Dioxide 20 L Glucose Calcium 7.8 L Phosphorus 1.8 L AST 42 H Total Protein 5.2 L Albumin 2.5 L 2.4 L Albumin/Globulin Ratio 0.7 L 0.9 L 05/25/20 05/25/20 05:00 05:00 WBC 13.3 H RBC 3.45 L Hgb 10.7 L Hct 31.8 L RDW 15.0 H Seg Neutrophils % 82 H Band Neutrophils % 14 H Lymphocytes % Myelocytes % 1 H Potassium 3.2 L Chloride 109 H Carbon Dioxide 19 L Glucose 115 H Calcium 7.6 L Phosphorus 2.3 L AST Total Protein 5.0 L Albumin 2.3 L Albumin/Globulin Ratio 0.9 L Meds: Medications Acetaminophen (Tylenol) 650 mg PO Q4-6HP PRN PRN Reason: PAIN/FEVER > 101 Last Admin: 05/27/20 20:22 Dose: 650 mg Documented by: Albuterol/Ipratropium (Duoneb) 3 ml NEB Q4HRT PRN PRN Reason: dyspnea Atorvastatin Calcium (Lipitor) 10 mg PO HS [facility] Last Admin: 05/27/20 20:22 Dose: 10 mg Documented by: Bisacodyl (Dulcolax) 10 mg [place] Q2-3DAYS PRN PRN Reason: Constipation Docusate Sodium (Colace) 100 mg PO BID [facility] Last Admin: 05/27/20 20:21 Dose: Not Given Documented by: Enoxaparin Sodium (Lovenox) 40 mg SQ DAILY [facility] Sodium Chloride (Sodium Chloride 0.9%) 250 mls @ 20 mls/hr IV .[id number] [facility] Last Admin: 05/27/20 17:01 Dose: Not Given Documented by: Acetaminophen (Ofirmev) 650 mg in 65 mls @ 130 mls/hr IV Q6HP PRN; Protocol PRN Reason: PAIN/FEVER > 101 Ceftriaxone Sodium 2 gm/ (Dextrose) 50 mls @ 100 mls/hr IV DAILY [facility]; Protocol Norepinephrine Bitartrate 8 mg (/ Sodium Chloride) 250 mls @ 18.75 mls/hr IV Q14H [facility]; Protocol PRN Reason: TITRATE TO KEEP MAP > 65 Ondansetron HCl (Zofran) 4 mg IV Q4-6HP PRN PRN Reason: Nausea And Vomiting Pantoprazole Sodium (Protonix) 40 mg PO QAMAC [facility] Potassium Chloride (Klor-Con) 40 meq PO BID [facility] Stop: 05/27/20 23:00 Last Admin: 05/27/20 20:21 Dose: 40 meq Documented by: Senna (Senokot) 2 tab PO HSP PRN PRN Reason: Constipation Sodium Chloride (Saline Flush) 10 ml IV Q8 [facility] Last Admin: 05/27/20 20:22 Dose: 10 ml Documented by: Tamsulosin HCl (Flomax) 0.4 mg PO QDAY [facility] A/P Narrative A/P Narrative: Narrative: Septic shock-improved Bacteremia-probably due to UTI Urine culture came back E. coli-pansensitive Antibiotic changed to ceftriaxone 2 g daily Blood culture growing gram-negative bacillus pending further report Patient clinically improving neck Discontinue Levophed Random cortisol was 2.65, less than 3 patient need outpatient evaluation continued having symptoms or low blood pressure Plan Echocardiogram-no wall motion abnormalities obviously, ejection fraction 55 to 60% no major valvular lesions COVID-19 PCR came back negative Antibiotics changed to ceftriaxone We will discontinue IV fluid as the patient is taking p.o. Hypokalemia Ordered replacement Acute delirium Improving Seroquel 12.5 at bedtime as needed Probable acute colitis Monitoring daily abdominal exam Symptoms improving Continue physical therapy DVT prophylaxis on Lovenox Expected length of stay-at least 2 more midnights CODE STATUS DNR Time Spent With Patient Time: Total time spent is greater than 50% in coordination of care (as docum ented) at patient's floor/unit and/or counseling patient: QUALITY VTE Deep Vein Thrombosis/Pulmonary Embolism Present on Admission: No
[2020-05-28] MEDS: 0.9 % SODIUM CHLORIDE 10 ML SYRINGE IV SCH ×3 (05:50→20:01)
[2020-05-28] MEDS: 0.9 % SODIUM CHLORIDE 250 ML IV SCH ×2 (05:51→15:02)
[2020-05-28] MEDS: PANTOPRAZOLE 40 MG TABLET PO SCH (07:05)
[2020-05-28 07:09] LABS: ALT/SGPT 66 U/l (0-40); AST/SGOT 70 U/l (0-37); Albumin 2.9 gm/dL (3.2-5.2); Albumin/Globulin Ratio 0.9 (1.0-2.3); Alkaline Phosphatase 90 U/L (39-117); Bilirubin,Total 0.3 mg/dL (0.0-1.0); Blood Urea Nitrogen 17 mg/dl (8-23); Calcium 9.1 mg/dl (8.6-10.4); Carbon Dioxide 23 mmol/L (22-30); Chloride 104 mmol/L (96-108); Globulin 3.2 gm/dL (2.2-3.7); Glomerular Filtration Rate 79; Glucose 83 mg/dL (70-105)
[2020-05-28] MEDS: cefTRIAXone 2 GM in DEXTROSE 5% IN WATER 50 ML IV SCH (10:15)
[2020-05-28] MEDS: ENOXAPARIN 40 MG/0.4 ML SYRINGE SQ SCH (10:15)
[2020-05-28] MEDS: TAMSULOSIN 0.4 MG CAPSULE PO SCH (10:15)
[2020-05-28] MEDS: DOCUSATE SODIUM 100 MG CAPSULE PO SCH ×2 (10:16→20:00)
--- NOTE | 2020-05-28 13:02 | Internal Med Progress Note ---
SUBJECTIVE Subjective Patient information: Note initiated : 05/28/20 at 1:00 pm Service Date, if different from initiated Date: [] Patient: Christian Cruz 80 y/o M admitted on 05/24/20 for Altered LOC. Chief Complaint: [] Presents to the ED with weakness altered mental status. History obtained from patient and . Sounds like other than being a little bit weak he was in his normal state of health this morning. When out did some weed whacking and came in a sat in his chair and fell asleep. When his came in and woke him up he seemed confused. He got up to go the bathroom and walked to the front door instead. said he he has been a little bit weak past few days. He fell a week ago while in the yard picking up dog feces. When asking him about abdominal pain or diarrhea says did have a little bit of achiness in his stomach this morning but none now. He states that constipation. Denies any abnormalities in his urine. Work-up in the ED was significant for fever and he had a lactate of 2.7. He was initially hypoxic but that has seemed to resolved in the ED likely related to his obtundation. He was difficult to arouse when he first arrived but after IV fluids and antibiotics patient is much more coherent. CT head chest abdomen pelvis were done which were unremarkable except for some mild colitis of the descending colon. CT chest was done with contrast did not show any pulmonary emboli. CT brain showed mild atrophy and chronic ischemic changes. Analysis with leukocyte esterase WBCs, moderate bacteria. Patient feels like he is clear minded now. He has occasional cough which is relatively normal for him given he has sinus drainage. Dates he had a little shortness of breath this morning but denies currently. In the ED is blood pressure dropped and after several liters of fluids he was started on Levophed low-dose. 05/25 Doing better today. Levophed still on but down to 3-4mcs. No new pains or complaints. Blood culture growing gram-negative bacillus. 05/26 Patient continues to require Levophed overnight and blood pressure dropped to 80s Ordered random cortisol level, echocardiogram and TSH level to look for any pump failure Continue broad-spectrum antibiotic Pending cultures Ordered potassium replaced 05/27 Urine culture came back E. coli Blood culture gram-negative backslash-pending further report Most likely urine source causing bacteremia Sepsis improved Patient blood pressure improved and we stopped Levophed Patient will be transferred out of ICU 05/28 Patient continues to be feel better His blood culture final sensitivities pending-E. coli growing Probably UTI causing sepsis Discussed with infectious disease and plan to discharge him on fluoroquinolones once we get the final culture sensitivity Blood pressure improved and he is not on any Levophed Interval history: Narrative: Pertinent ROS: General-denied any fever overnight Chest-no chest pain no difficulty in breathing no shortness of breath Cardiac-no chest pain no palpitations Abdominal-continued having pain loose stools Urinary-no pain continued having good urine output Musculoskeletal-continued having pain back pain Neuro-no seizure no anxiety Psychiatric-no anxiety no depression Interval history: Narrative: Constitutional Vitals: Vital Signs Temp Pulse Resp BP Pulse Ox 98.4 F 78 20 124/78 98 05/28/20 12:00 05/28/20 12:00 05/28/20 12:00 05/28/20 12:00 05/28/20 12:00 Period Temp Pulse Resp BP Sys/John Pulse Ox Last 24 Hr 98.0 F-98.8 F 64-108 0-24 110-137/70-96 93-98 Intake and Output 05/27/20 05/28/20 05/28/20 21:59 05:59 13:59 Intake Total 1140 200 630 Output Total 1100 1650 850 Balance 40 -1450 -220 Weight 179 lb 11.2 oz Intake & Output: Intake & Output 05/27/20 05/28/20 05/28/20 21:59 05:59 13:59 Intake Total 1140 200 630 Output Total 1100 1650 850 Balance 40 -1450 -220 Weight 179 lb 11.2 oz Intake: IV 50 Rocephin 2 gm In Dextrose 5% in 50 Water 50 ml @ 100 mls/hr IV DAILY [facility] Rx#:[id number] Oral 1140 200 580 Output: Urine Catheter Amount 1100 1650 600 Void Amount 250 Other: Meal Dinner Breakfast Percent of Meal Consumed 100% 100% Urine Appearance Clear Clear Clear Uretheral (Ingram) Clear Clear Urine Color Pale Pale Pale Dark Yellow Uretheral (Ingram) Pale Pale Urine Odor Normal Normal Stool Size Small Stool Color Brown Stool Consistency Soft # Bowel Movements 0 1 General appearance: cooperative Head Head exam: Present atraumatic, normal inspection and normocephalic Eye Eye exam: Present EOMI; Absent conjunctival injection, nystagmus, periorbital swelling and scleral icterus ENT ENT exam: Present normal exam and normal oropharynx Neck Neck exam: Present full ROM; Absent lymphadenopathy and tenderness Respiratory Respiratory exam: Present normal respiratory exam and CTAB; Absent accessory muscle use, rales, respiratory distress and wheezes Cardiovascular Cardiovascular exam: Absent bradycardia, irregular rhythm, +S3, +S4 and tachycardia GI/Abdominal GI/Abdominal exam: Present normal bowel sounds, soft and distended Extremities Exam Extremities exam: Present full ROM and normal inspection; Absent Johanne's sign Neurological Exam Neurological exam: Present alert, oriented X3 and reflexes normal; Absent motor sensory deficit Psychiatric Psychiatric exam: Absent agitated, anxious and depressed OBJ DATA Labs CBC & Chem 7: 05/26/20 05:05 05/28/20 05:05 Labs: Abnormal Lab Results 05/28/20 05/27/20 05/26/20 05:05 05:15 05:05 WBC RBC Hgb Hct RDW Band Neutrophils % Lymphocytes % Myelocytes % Chloride 110 H Carbon Dioxide 20 L Calcium 7.8 L Phosphorus 1.8 L AST 70 H 42 H ALT 66 H Total Protein 5.2 L Albumin 2.9 L 2.5 L 2.4 L Albumin/Globulin Ratio 0.9 L 0.7 L 0.9 L 05/26/20 05:05 WBC 11.3 H RBC 3.48 L Hgb 10.7 L Hct 32.0 L RDW 15.0 H Band Neutrophils % 12 H Lymphocytes % 6 L Myelocytes % 1 H Chloride Carbon Dioxide Calcium Phosphorus AST ALT Total Protein Albumin Albumin/Globulin Ratio Meds: Medications Acetaminophen (Tylenol) 650 mg PO Q4-6HP PRN PRN Reason: PAIN/FEVER > 101 Last Admin: 05/27/20 20:22 Dose: 650 mg Documented by: Albuterol/Ipratropium (Duoneb) 3 ml NEB Q4HRT PRN PRN Reason: dyspnea Atorvastatin Calcium (Lipitor) 10 mg PO [facility] Last Admin: 05/27/20 20:22 Dose: 10 mg Documented by: Bisacodyl (Dulcolax) 10 mg W[place] Q2-3DAYS PRN PRN Reason: Constipation Docusate Sodium (Colace) 100 mg PO BID [facility] Last Admin: 05/28/20 10:16 Dose: Not Given Documented by: Enoxaparin Sodium (Lovenox) 40 mg SQ DAILY [facility] Last Admin: 05/28/20 10:15 Dose: 40 mg Documented by: Sodium Chloride (Sodium Chloride 0.9%) 250 mls @ 20 mls/hr IV .[id number] [facility] Last Admin: 05/28/20 05:51 Dose: Not Given Documented by: Acetaminophen (Ofirmev) 650 mg in 65 mls @ 130 mls/hr IV Q6HP PRN; Protocol PRN Reason: PAIN/FEVER > 101 Ceftriaxone Sodium 2 gm/ (Dextrose) 50 mls @ 100 mls/hr IV DAILY [facility]; Protocol Last Infusion: 05/28/20 10:50 Dose: Infused Documented by: Norepinephrine Bitartrate 8 mg (/ Sodium Chloride) 250 mls @ 18.75 mls/hr IV Q14H PRN; Protocol PRN Reason: TITRATE TO KEEP MAP > 65 Ondansetron HCl (Zofran) 4 mg IV Q4-6HP PRN PRN Reason: Nausea And Vomiting Pantoprazole Sodium (Protonix) 40 mg PO QAMAC [facility] Last Admin: 05/28/20 07:05 Dose: 40 mg Documented by: Senna (Senokot) 2 tab PO HSP PRN PRN Reason: Constipation Sodium Chloride (Saline Flush) 10 ml IV Q8 [facility] Last Admin: 05/28/20 05:50 Dose: 10 ml Documented by: Tamsulosin HCl (Flomax) 0.4 mg PO QDAY [facility] Last Admin: 05/28/20 10:15 Dose: 0.4 mg Documented by: A/P Narrative A/P Narrative: Narrative: Septic shock-improved Bacteremia-probably due to UTI Urine culture came back E. coli-pansensitive Antibiotic changed to ceftriaxone 2 g daily Blood culture growing gram-negative bacillus pending further report Patient clinically improving neck Discontinue Levophed Random cortisol was 2.65, less than 3 patient need outpatient evaluation continued having symptoms or low blood pressure Plan Echocardiogram-no wall motion abnormalities obviously, ejection fraction 55 to 60% no major valvular lesions COVID-19 PCR came back negative Antibiotics changed to ceftriaxone We will discontinue IV fluid as the patient is taking p.o. Hypokalemia Ordered replacement Acute delirium Improved Seroquel 12.5 at bedtime as needed Probable acute colitis Monitoring daily abdominal exam Symptoms improving Continue physical therapy DVT prophylaxis on Lovenox Expected length of stay-at least 2 more midnights CODE STATUS DNR Time Spent With Patient Time: Total time spent is greater than 50% in coordination of care (as d ocumented) at patient's floor/unit and/or counseling patient: QUALITY VTE Deep Vein Thrombosis/Pulmonary Embolism Present on Admission: No
[2020-05-28] MEDS ORDERED: MELATONIN 3 MG TABLET PO PRN (16:46)
[2020-05-28] MEDS: ATORVASTATIN 10 MG TABLET PO SCH (20:00)
[2020-05-28] MEDS: ACETAMINOPHEN 325 MG TABLET PO PRN (20:00)
[2020-05-29] MEDS: 0.9 % SODIUM CHLORIDE 10 ML SYRINGE IV SCH (05:11)
[2020-05-29] MEDS: PANTOPRAZOLE 40 MG TABLET PO SCH (07:13)
[2020-05-29 07:26] LABS: ALT/SGPT 78 U/l (0-40); AST/SGOT 62 U/l (0-37); Albumin 3.1 gm/dL (3.2-5.2); Alkaline Phosphatase 87 U/L (39-117); Bilirubin,Total 0.3 mg/dL (0.0-1.0); Blood Urea Nitrogen 19 mg/dl (8-23); Calcium 9.3 mg/dl (8.6-10.4); Carbon Dioxide 26 mmol/L (22-30); Chloride 102 mmol/L (96-108); Globulin 3.2 gm/dL (2.2-3.7); Glomerular Filtration Rate 70; Glucose 87 mg/dL (70-105)
[2020-05-29] MEDS: ACETAMINOPHEN 325 MG TABLET PO PRN (07:43)
[2020-05-29] MEDS: DOCUSATE SODIUM 100 MG CAPSULE PO SCH (08:59)
[2020-05-29] MEDS: ENOXAPARIN 40 MG/0.4 ML SYRINGE SQ SCH (09:00)
[2020-05-29] MEDS: TAMSULOSIN 0.4 MG CAPSULE PO SCH (09:47)
[2020-05-29] MEDS: cefTRIAXone 2 GM in DEXTROSE 5% IN WATER 50 ML IV SCH (09:47)
--- NOTE | 2020-05-29 10:50 | Discharge Summary ---
Discharge Provider Provider Patient information: Note initiated : 05/29/20 at 10:47 am Service Date, if different from initiated Date: [] Patient: Christian Cruz 80 y/o M admitted on 05/24/20 for Altered LOC. Chief Complaint: [] Date of admission: 05/24/20 16:35 Discharge date: 05/29/20 Primary care physician: Se Maldonado DO Consults: 05/24/20 Consult to Physician [CONS] Stat Comment: Consulting Provider: Jordon Bass Reason For Exam: Physician to Consult 05/24/20 15:19 Consult to Physician [CONS] Stat Comment: Consulting Provider: Donell Pereira Reason For Exam: Physician to Consult Discharge Meds Discharge Medications Active and Home Medications: Home Medications aspirin 81 mg tablet,delayed release 81 mg PO QDAY 03/15/16 [History Confirmed 05/24/20 Last Taken 05/23/20 08:00] Adult Multi Gummies 1 tab PO DAILY 03/06/17 [History Confirmed 05/24/20 Last Taken 05/23/20 08:00] atorvastatin 10 mg tablet 10 mg PO QDAY #90 tab 10/20/19 [Rx Confirmed 05/24/20 Last Taken 05/23/20 08:00] tamsulosin 0.4 mg capsule 0.4 mg PO QDAY #90 cap 02/17/20 [Rx Confirmed 05/24/20 Last Taken 05/23/20 08:00] levofloxacin 750 mg PO QDAY #7 tab 05/29/20 [Rx Last Taken Unknown] melatonin 3 mg PO HSP PRN #30 tab 05/29/20 [Rx Last Taken Unknown] COURSE Hospital Course Hospital Course: Presents to the ED with weakness altered mental status. History obtained from patient and . Sounds like other than being a little bit weak he was in his normal state of health this morning. When out did some weed whacking and came in a sat in his chair and fell asleep. When his came in and woke him up he seemed confused. He got up to go the bathroom and walked to the front door instead. said he he has been a little bit weak past few days. He fell a week ago while in the yard picking up dog feces. When asking him about abdominal pain or diarrhea says did have a little bit of achiness in his stomach this morning but none now. He states that constipation. Denies any abnormalities in his urine. Work-up in the ED was significant for fever and he had a lactate of 2.7. He was initially hypoxic but that has seemed to resolved in the ED likely related to his obtundation. He was difficult to arouse when he first arrived but after IV fluids and antibiotics patient is much more coherent. CT head chest abdomen pelvis were done which were unremarkable except for some mild colitis of the descending colon. CT chest was done with contrast did not show any pulmonary emboli. CT brain showed mild atrophy and chronic ischemic changes. Analysis with leukocyte esterase WBCs, moderate bacteria. Patient feels like he is clear minded now. He has occasional cough which is relatively normal for him given he has sinus drainage. Dates he had a little shortness of breath this morning but denies currently. In the ED is blood pressure dropped and after several liters of fluids he was started on Levophed low-dose. 05/25 Doing better today. Levophed still on but down to 3-4mcs. No new pains or complaints. Blood culture growing gram-negative bacillus. 05/26 Patient continues to require Levophed overnight and blood pressure dropped to 80s Ordered random cortisol level, echocardiogram and TSH level to look for any pump failure Continue broad-spectrum antibiotic Pending cultures Ordered potassium replaced 05/27 Urine culture came back E. coli Blood culture gram-negative backslash-pending further report Most likely urine source causing bacteremia Sepsis improved Patient blood pressure improved and we stopped Levophed Patient will be transferred out of ICU 05/28 Patient continues to be feel better His blood culture final sensitivities pending-E. coli growing Probably UTI causing sepsis Discussed with infectious disease and plan to discharge him on fluoroquinolones once we get the final culture sensitivity Blood pressure improved and he is not on any Levophed 05/29 His blood culture and urine culture came back E. coli pansensitive-except tetracycline Discussed with the lab and his sensitivities not updated in the system Patient is feeling great and back to his baseline therapy recommended home health PT eval Ordered Discussed with the patient and he will be discharged home on 7 more days of levofloxacin 750 daily He needs to follow-up with the primary care provider Interval history: Narrative: Pertinent ROS: General-denied any fever overnight Chest-no chest pain no difficulty in breathing no shortness of breath Cardiac-no chest pain no palpitations Abdominal-continued having pain loose stools Urinary-no pain continued having good urine output Musculoskeletal-continued having pain back pain Neuro-no seizure no anxiety Psychiatric-no anxiety no depression Septic shock-improved E. coli bacteremia- due to UTI Blood cultures and urine culture came back E. coli-pansensitive except tetracycline Antibiotic changed to ceftriaxone 2 g daily during the hospital stay and during admission changed to levofloxacin as recommended by ID physician Discontinue Levophed-he is off of Levophed for 2 days Random cortisol was 2.65, this needs to be rechecked outpatient Plan Echocardiogram-no wall motion abnormalities obviously, ejection fraction 55 to 60% no major valvular lesions COVID-19 PCR came back negative Antibiotics changed to levofloxacin 750 for 7 more days Hypokalemia Ordered replacement Acute delirium-improved Improved Seroquel 12.5 at bedtime as needed Melatonin 3 mg at bedtime Probable acute colitis Monitoring daily abdominal exam Symptoms improving Discharge diagnosis: Septic shock -E. coli bacteremia due to UTI Time Spent with Patient Time attestation: Total time spent providing and/or coordinating discharge services: EXAM Constitutional Vitals: Temp Pulse Resp BP Pulse Ox 97.3 F 74 14 111/74 94 05/29/20 08:00 05/29/20 08:00 05/29/20 08:00 05/29/20 08:00 05/29/20 08:00 General appearance: no acute distress Head Head exam: Present atraumatic, normal inspection and normocephalic Eye Eye exam: Present EOMI; Absent periorbital swelling and scleral icterus ENT ENT exam: Present mucous membranes moist, normal exam and normal oropharynx Respiratory Respiratory exam: Present normal respiratory exam; Absent accessory muscle use, respiratory distress and wheezes Cardiovascular Cardiovascular exam: Absent irregular rhythm, RRR, +S3, +S4 and tachycardia GI/Abdominal GI/Abdominal exam: Present normal bowel sounds, soft and distended Neurological Exam Neurological exam: Present alert, oriented X3 and reflexes normal; Absent motor sensory deficit Psychiatric Psychiatric exam: Absent agitated, anxious and depressed Discharge Data Data Completed and Pending Labs on day of discharge: Labs from last 24 hours 05/29/20 05:10 Sodium 138 Potassium 3.6 Chloride 102 Carbon Dioxide 26 Anion Gap 10.0 BUN 19 Creatinine 1.0 GFR Calculation 70 Glucose 87 Calcium 9.3 Magnesium 2.1 Total Bilirubin 0.3 AST 62 H ALT 78 H Alkaline Phosphatase 87 Total Protein 6.3 Albumin 3.1 L Globulin 3.2 Albumin/Globulin Ratio 1.0 Preliminary micro results at discharge 05/24/20 12:50 Blood Culture - Preliminary Blood Gram negative bacillus Discharge Plan Patient/Caregiver Discharge Instructions Activity: ambulate only with your walker and as per physical therapy Diet: Regular Diet Instructions: Sepsis (GEN) Activity Restrictions/Additional Instructions: This discharge packet is provided to you to help keep you informed about your care. We want to ensure you get everything you need when you go home. You will also be receiving a call from us in a few days to follow up with you and see how you are doing since your discharge. This gives us a chance to listen to any con cerns you maybe experiencing since you were discharged or any additional needs you may have, as well as providing us feedback on your care experience. We strive to always provide excellent care and thank you for your feedback and for choosing [facility]. Prescriptions: New melatonin 3 mg Tablet 3 mg PO HSP PRN (Reason: Sleep) Qty: 30 RF: 0 levofloxacin 750 mg tablet 750 mg PO QDAY Qty: 7 RF: 0 Continued atorvastatin 10 mg tablet 10 mg tablet 10 mg PO QDAY Qty: 90 RF: 3 tamsulosin [Flomax] 0.4 mg capsule 0.4 mg PO QDAY Qty: 90 RF: 3 aspirin 81 mg tablet,delayed release (DR/EC) 81 mg PO QDAY RF: 0 Adult Multi Gummies 1 tab PO DAILY RF: 0 Other Ambulatory Orders: Physical Therapy at Discharge - General (Routine) Location: None Selected Ordered By: Jessica Hilliard Follow Up Plan Follow up with: Se Maldonado DO [Primary Care Provider] - 06/01/20 2:15 pm (Please check in at 2:00 pm) Patient Disposition: Home Health Service Prognosis: Fair Rehab Potential: Fair I certify that the patient requires SNF services: No Overall status at discharge: patient is progressing back to baseline Discharge Orders: Discharge Order (Routine); Ordered 05/29/20 Ordered By: Jessica Hilliard Discharge Comment: Home health PT QUALITY VTE Deep Vein Thrombosis/Pulmonary Embolism Present on Admission: No
== END 2020-05-29 12:15 | disposition home health service (06) | DRG 871 ==
LOC: ED 11:56 → ICU 16:35
PROVIDERS: ADMIT Internal Medicine; ATTEND Internal Medicine